=== PATIENT | female | born 2000 | race Caucasian/White ===

== ENCOUNTER 2018-06-30 00:29 | Outpatient (CLI) | payer MEDICAID, OTHER, SELFPAY ==
--- NOTE | 2018-06-30 09:49 | DI.RAD_ITS ---
SYMPTOM/DIAGNOSIS: LOW BACK PAIN, DISABILITY DETERMINATION LUMBAR SPINE: AP and lateral views. No priors. There are five lumbar type vertebral bodies. There appear to be rudimentary ribs at L 1 which is a normal variant. The vertebral bodies, posterior elements and disc spaces are all well maintained. The bones are intact and normally mineralized. IMPRESSION: Negative examination. 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
== END 2018-06-30 00:49 ==
PROVIDERS: PCP Nurse Practitioner Family; Visit Provider Pediatrics Pediatric Rheumatology
DX: M54.5 Low back pain (principal); Z02.71 Encounter for disability determination
CPT/HCPCS: 72100

== ENCOUNTER 2019-04-08 18:20 | Emergency (ER) | payer MEDICAID, SELFPAY ==
[2019-04-08 18:23] VITALS: BP 158/84; PULSE 84; RESP 16; TEMP 36.7; O2SAT 97
--- NOTE | 2019-04-08 18:35 | ED.GENADUL_ITS ---
Discharge Plan Disposition Patient Disposition: HOME Condition: Stable Discharge Details Chief Complaint: EarProblem Clinical Impression: Right ear impacted cerumen Primary Care Provider: Evens Wong ED Provider: Lauro Og Home Meds and New Rx's Prescriptions: No Action Xulane 150-35 mcg/24 hr patch weekly 1 patch Transdermal weekly Qty: 9 RF: 5 sertraline 50 mg tablet 50 mg PO DAILY RF: 0 naproxen 500 mg tablet 500 mg PO BID RF: 0 hydroxyzine HCl 25 mg tablet 25 mg PO .COMPLEX PRN (Reason: itching) Qty: 60 RF: 3 magnesium oxide 420 mg tablet 420 mg PO DAILY Qty: 90 RF: 3 ibuprofen 600 MG tablet 600 mg PO Q6H PRN Qty: 60 RF: 4 Discharge Instructions Instructions: Cerumen Impaction (ED) Medical Decision Making 19 yo female comes in with several days of right era pain/fullness. Denies trauma, drainage, fevers, swimming. Has normal external mastoid exams bilaterally, left tm and ext aud canal normal, right ear is impacted with cerumen. Will have nursing irrigate and reassess nursing irrigated and returned significant amount of ear wax. External aud canal and tm appera normal. Will d/c home, return precautions given Differential Diagnosis impaction, aom HPI General Mode of arrival: ambulatory . Date/Time Provider Initiated Documentation: 04/08/19 18:23 . Limitations to Documentation: no limitations . Information obtained by: patient . History of Present Illness 19 year old F presents to the emergency department with the chief complaint of right ear pain, described as moderate, and it has been constant. No relieving factors improve symptom(s), No exacerbating factors reported . Patient notes no other symptoms.. Patient did receive the following treatments prior to arrival, none Related Data Home Medications Medication Instructions Recorded Confirmed ibuprofen 600 mg PO Q6H PRN #60 tab-cap 12/07/17 02/16/19 hydroxyzine HCl 25 mg tablet 25 mg PO .COMPLEX PRN #60 tab 07/07/18 02/16/19 magnesium oxide 420 mg tablet 420 mg PO DAILY #90 tab 07/07/18 02/16/19 naproxen 500 mg tablet 500 mg PO BID 07/07/18 02/16/19 sertraline 50 mg tablet 50 mg PO DAILY 09/20/18 05/02/19 norelgestromin 150 mcg-e.estradiol 1 patch TRANSDERMAL weekly #9 each 02/16/19 02/16/19 35 mcg/24 hr weekly transderm patch Previous Rx's Medication Instructions Recorded ibuprofen 600 mg PO Q6H PRN #60 tab-cap 12/07/17 hydroxyzine HCl 25 mg tablet 25 mg PO .COMPLEX PRN #60 tab 07/07/18 magnesium oxide 420 mg tablet 420 mg PO DAILY #90 tab 07/07/18 norelgestromin 150 mcg-e.estradiol 1 patch TRANSDERMAL weekly #9 each 02/16/19 35 mcg/24 hr weekly transderm patch Allergies Allergy/AdvReac Type Severity Reaction Status Date / Time No Known Allergies Allergy Unverified 02/16/19 11:36 General Stated Complaint: EarProblem SAGE: 4 Review of Systems Review of Systems All systems reviewed & are unremarkable except as noted in HPI and below Constitutional Denies chills, Denies fever(s) and Denies weakness ENT Denies change in voice Cardiovascular Denies chest pain and Denies dyspnea Respiratory Denies cough and Denies dyspnea Gastrointestinal Denies abdominal pain, Denies nausea and Denies vomiting Neurologic Denies weakness [facility] Medical History BMI 50.0-59.9, adult (Chronic) Migraine with aura Other social stressor Second hand smoke exposure (Acute 02/09/18) Marijuana use, continuous (Acute 08/11/16) Lumbar pain (Acute 02/09/18) Depression with anxiety (Acute 08/11/16) Contraceptive management (Acute 02/25/15) BMI 34.0-34.9,adult Depression with anxiety Social History Smoking/Tobacco Use Status: Former Tobacco Use Second Hand Exposure: Yes Alcohol Intake: never Drug use: Never Substance use type: marijuana Adopted: No Foster care: Yes (briefly 16-17) Household members: significant other, children and other Details: Deangelo LYNCH, ELIESER's mom and his 2 daughters 50% of time Number of Children: 1 Communication Needs: None Education Level: other Details: GED current occupation: Employed-stopped work at [employer] secondary to back pain Pets and animals: Yes (2 CATS, 2 DOGS, 2 FERRETS, 2 LIZARDS) Pets and animals: cat(s), dog(s), ferret(s) and other What is your relationship status?: living with partner Panel score (0-1 are the most socially isolated patients): 1 Do you feel safe at home: Yes Do you feel safe in your relationship?: Yes Additional Social history: CJ on disability for bipolar. His 2 daughters; 8yo and 3yo live at the house 50% of the time. Patient's mother from an acute [place] 2017. Female Reproductive History Menstrual control method: patch History History 2 Para Hx # Term Pregnancies 1 Multiple births Hx # Pregnancies Ectopic pregnancies AB induced Hx Number of Living Children AB spontaneous Exam Const General: no acute distress Orientation: alert HENMT Head: normal to inspection Ears: external ears normal General nose exam: external nose normal Mouth: moist mucous membranes Eyes General: appearance normal, both eyes and all related structures Neck Neck: normal visual inspection Resp Effort & Inspection: normal respiratory effort and able to speak in complete sentences Cardio Rate: regular rate Skin General skin exam: no rashes or lesions noted Neuro General: alert and oriented x3 Extrem General: normal to inspection Psych Mental Status: mental status grossly normal Course Vital Signs Temperature 36.7 C 04/08/19 18:23 Pulse 84 04/08/19 18:23 Respiratory Rate 16 04/08/19 18:23 Blood Pressure 158/84 H 04/08/19 18:23 Pulse Oximetry 97 04/08/19 18:23 Temperature 36.7 C 04/08/19 18:23 Temperature Source Temporal Artery Scan 04/08/19 18:23 Pulse 84 04/08/19 18:23 Respiratory Rate 16 04/08/19 18:23 Respiratory Effort 04/08/19 18:23 Blood Pressure 158/84 H 04/08/19 18:23 Blood Pressure Position Sitting 04/08/19 18:23 Pulse Oximetry 97 04/08/19 18:23 Oxygen Delivery Method Room Air 04/08/19 18:23 Oxygen Flow Rate 0 04/08/19 18:23 Pain Level 4 04/08/19 18:26
== END 2019-04-08 18:51 | disposition home or self-care (01) ==
PROVIDERS: Emergency Provider Emergency Medicine; PCP Nurse Practitioner Family
DX: H92.01 Otalgia, right ear (principal); H61.21 Impacted cerumen, right ear
CPT/HCPCS: 69209; 99282

== ENCOUNTER 2019-05-03 22:43 | Emergency (ER) | payer MEDICAID, SELFPAY ==
[2019-05-03 22:46] VITALS: BP 145/96; PULSE 120; RESP 24; TEMP 35.7; O2SAT 96
--- NOTE | 2019-05-03 22:49 | ED.GENADUL_ITS ---
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 You chose to leave prior to an ultrasound being obtained follow up with your obgyn provider as soon as possible if you change your mind or have worsening bleeding or severe pain return to the emergency department Medical Decision Making 19 yo female who denies prior abnormal periods comes in with complaint of heavy bleeding with clots and cramping of pelvis area starting tonight. Denies fevers, chills, n/v or trauma. She states this is the time she would normally get her period but has never had one this heavy before. She doesn't believe she is . Will check cbc, coags and hcg and perform speculum exam. pt had several large clots in the vagina and bleeding from the cervix. Urine obtained by catheterization by nursing and is positive. She states her last menstrual period was a month ago. She remains hd stable with no abdominal tenderness, hr now in the 80's. No evidence of hemoperitoneum on bedside u/s. I do not visualize an iup on transabdominal u/s. Will see if a tech is available to come in to eval for ectopic no tech available until 7am. Pt remains hd stable and bleeding as decreased. Will keep pt in ED until AM when tvus can be done. Labs show no significant anemia pt is not willing to stay for her ultrasound and wants to leave. I had a long discussion with her about the risks of missing an ectopic including and possible senior living disability requirng full assistance for all activities. She has capacity to make her own decisions and understands and verbalizes these risks of leaving. She is leaving against medical advise. I strongly recommended that she return if she changes her mind or worsening and that she should see her obgyn provider GUS. She understands these instructions Differential Diagnosis dysfunctional uterine bleeding, ectopic Lab Data Lab results reviewed: Yes I reviewed the patient's lab results. HPI General Mode of arrival: ambulatory . Date/Time Provider Initiated Documentation: 05/03/19 22:44 . Limitations to Documentation: no limitations . Information obtained by: patient . History of Present Illness 19 year old F presents to the emergency department with the chief complaint of vaginal bleeding, described as moderate, Patient started experiencing this hour(s) (3) and it has been constant. No relieving factors improve symptom(s), No exacerbating factors reported . Patient did receive the following treatments prior to arrival, none Related Data Home Medications Medication Instructions Recorded Confirmed ibuprofen 600 mg PO Q6H PRN #60 tab-cap 12/07/17 05/03/19 hydroxyzine HCl 25 mg tablet 25 mg PO .COMPLEX PRN #60 tab 07/07/18 05/03/19 magnesium oxide 420 mg tablet 420 mg PO DAILY #90 tab 07/07/18 05/03/19 naproxen 500 mg tablet 500 mg PO BID 07/07/18 05/03/19 sertraline 50 mg tablet 50 mg PO DAILY 07/07/18 05/03/19 norelgestromin 150 mcg-e.estradiol 1 patch TRANSDERMAL weekly #9 each 02/16/19 05/03/19 35 mcg/24 hr weekly transderm patch Previous Rx's Medication Instructions Recorded ibuprofen 600 mg PO Q6H PRN #60 tab-cap 12/07/17 hydroxyzine HCl 25 mg tablet 25 mg PO .COMPLEX PRN #60 tab 07/07/18 magnesium oxide 420 mg tablet 420 mg PO DAILY #90 tab 07/07/18 norelgestromin 150 mcg-e.estradiol 1 patch TRANSDERMAL weekly #9 each 02/16/19 35 mcg/24 hr weekly transderm patch Allergies Allergy/AdvReac Type Severity Reaction Status Date / Time No Known Allergies Allergy Unverified 05/03/19 22:50 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: 3 Review of Systems Review of Systems All systems reviewed & are unremarkable except as noted in HPI and below Constitutional Denies chills and Denies fever(s) Cardiovascular Denies chest pain and Denies dyspnea Respiratory Denies cough and Denies dyspnea Gastrointestinal Denies abdominal pain, Denies nausea and Denies vomiting Integumentary/Breasts Denies rash [facility] Social History (Updated 03/14/19 @ 19:11 by Kayley Yañez MD) Smoking/Tobacco Use Status: Former Tobacco Use Second Hand Exposure: Yes Alcohol Intake: never Drug use: Daily Substance use type: marijuana Adopted: No Foster care: Yes (briefly 16-17) Household members: significant other, children and other Details: ELIESER - MARYSE, Deangelo - Mary, ELIESER's mom and his 2 daughters 50% of time Number of Children: 1 Communication Needs: None Education Level: other Details: GED current occupation: Employed-stopped work at [employer] secondary to back pain Pets and animals: Yes (2 CATS, 2 DOGS, 2 FERRETS, 2 LIZARDS) Pets and animals: cat(s), dog(s), ferret(s) and other What is your relationship status?: living with partner Panel score (0-1 are the most socially isolated patients): 1 Do you feel safe at home: Yes Do you feel safe in your relationship?: Yes Additional Social history: ELIESER on disability for bipolar. His 2 daughters; 8yo and 3yo live at the house 50% of the time. Patient's mother from an acute [place] 2018. Female Reproductive History Menstrual control method: patch History History 2 Para Hx # Term Pregnancies 1 Multiple births Hx # Pregnancies Ectopic pregnancies AB induced Hx Number of Living Children AB spontaneous Exam Const General: no acute distress Orientation: alert HENMT Head: normal to inspection Ears: external ears normal General nose exam: external nose normal Mouth: moist mucous membranes Eyes General: appearance normal, both eyes and all related structures Neck Neck: normal visual inspection Resp Effort & Inspection: normal respiratory effort and able to speak in complete sentences Cardio Rate: regular rate GI Palpation: soft Skin General skin exam: no rashes or lesions noted Neuro General: alert and oriented x3 Extrem General: normal to inspection Psych Mental Status: mental status grossly normal Course Vital Signs Temperature 35.7 C L 05/03/19 22:46 Pulse 120 H 05/03/19 22:46 Respiratory Rate 24 05/03/19 22:46 Blood Pressure 145/96 H 05/03/19 22:46 Pulse Oximetry 96 05/03/19 22:46 Temperature 35.7 C L 05/03/19 22:46 Temperature Source Skin 05/03/19 22:46 Pulse 120 H 05/03/19 22:46 Respiratory Rate 24 05/03/19 22:46 Blood Pressure 145/96 H 05/03/19 22:46 Pulse Oximetry 96 05/03/19 22:46 Pain Level 8 05/03/19 22:46
[2019-05-03 23:12] LABS: Abs Immature Grans 0.05 k/cumm (0.0-0.09); Absolute Basophil Count 0.03 k/cumm (0.0-0.2); Absolute Monocyte Count 0.77 k/cumm (0.11-0.7); Absolute Neutrophil Count 12.33 k/cumm (1.2-6.7); Basophils % 0.2; Eosinophils % 1.2; HCT 41.3 % (36.0-46.0); HGB 13.7 g/dL (12.0-15.5); Immature Grans % 0.3; Lymphocytes % 16.8; Mean Corp. HGB Concentration 33.2 g/dL (32.0-36.0); Mean Corpuscular Hemoglobin 27.2 pg (27.0-33.0); Mean Corpuscular Volume 82.1 fL (80-95); Mean Platelet Volume 10.1 fL (8.0-11.0); Monocytes % 4.8; Neutrophils % 76.7; Platelet Count 357 x1000/uL (130-400); RBC 5.03 m/cumm (4.00-5.20); RBC Distribution Width 13.7 % (11.7-14.6); White Blood Cell Count 16.08 k/cumm (4.4-10.8)
[2019-05-03 23:13] LABS: Absolute Eosinophil Count 0.19 k/cumm (0.0-0.7)
[2019-05-03 23:27] LABS: ALT 18 U/L (12-78); AST 15 U/L (15-37); Albumin 3.4 g/dL (3.4-5.0); Alkaline Phosphatase 106 U/L (46-116); Anion Gap 13.9 mmol/L (3-11); BUN 10 mg/dL (7-18); Bilirubin, Total 0.2 mg/dL (0.2-1.0); CO2 22.1 mmol/L (21.0-32.0); CREATININE 0.88 mg/dL (0.55-1.02); Calcium 9.2 mg/dL (8.5-10.1); Chloride 104 mmol/L (98-107); Glucose 116 mg/dL (70-100); Potassium 3.8 mmol/L (3.5-5.1); Sodium 140 mmol/L (136-145); Total Protein 7.4 g/dL (6.4-8.2)
[2019-05-03 23:43] LABS: PTT Activated 22.1 sec (21.0-31.4); Prothrombin Time 9.8 sec (9.3-11.0)
[2019-05-03 23:45] LABS: HCG Qual (Serum) Positive
[2019-05-03] MEDS: Ibuprofen 600 MG TAB PO (23:52)
[2019-05-04] VITALS (45 sets, daily range): BP systolic 97–137; BP diastolic 52–90; PULSE 79–117; RESP 16; TEMP 35.7; O2SAT 92–100
[2019-05-04 00:20] LABS: HCG Quant, Pregnancy 1593 mIU/mL (1-3)
[2019-05-04] MEDS: Acetaminophen 500 MG TAB 1000 MG PO (01:44)
--- NOTE | 2019-05-04 01:53 | DI.US_ITS ---
SYMPTOM/DIAGNOSIS: VAGINAL BLEEDING, OB ULTRASOUND: A transabdominal and transvaginal examination was carried out. The study is limited due to the patient's body habitus. The uterus measures 12.4 cm in length, 5.5 cm in height and 6.2 cm in width with an endometrial stripe thickness of 6.3 mm The right ovary measures 3.5 x 1.6 x 3 cm. The left ovary 3.1 x 1.4 x 3 cm. No intrauterine gestation is identified. Note is made of color flow in both ovaries with nothing to suggest torsion. No acute abnormality is identified. There is no evidence of an intrauterine gestation. Many abnormalities cannot be diagnosed. A normal exam does not exclude a congenital anomaly. HISTORY: Vaginal bleeding with Date of exam: 05/04/2019 LMP: 04/10/19 EDC by LMP: Previous study: wks Range: to EDC by prior us: Findings: Prior surgery/: BIOMETRY: PELVIC MEASUREMENTS: CRL: mm wks Uterus: 12.4 x 5.5 x 6.2 cm Yolk sac: mm wks Gest sac: mm wks Rt Ovary: 3.5 x 1.6 x 3 cm BPD: mm wks HC: mm wks Lt Ovary: 3.1 x 1.4 x 3 cm AC: mm wks FL: mm wks Comments: color flow seen in both ovaries. Composite Age (US): wks EDC by US: Heart Rate: BPM Amniotic Fluid: Oligo Normal Polyhydramnios Movement noted: No Comments:
[2019-05-04] MEDS: fentaNYL 100 MCG/2 ML VIAL 75 MCG IVP ×2 (02:31→03:05)
[2019-05-04 02:44] LABS: HCT 37.9 % (36.0-46.0); HGB 12.6 g/dL (12.0-15.5); Mean Corp. HGB Concentration 33.2 g/dL (32.0-36.0); Mean Corpuscular Hemoglobin 27.2 pg (27.0-33.0); Mean Corpuscular Volume 81.9 fL (80-95); Mean Platelet Volume 10.2 fL (8.0-11.0); Platelet Count 342 x1000/uL (130-400); RBC 4.63 m/cumm (4.00-5.20); RBC Distribution Width 13.5 % (11.7-14.6); White Blood Cell Count 16.01 k/cumm (4.4-10.8)
--- NOTE | 2019-05-04 08:58 | CMPROGNOTE_ITS ---
Care Management Progress Note CM consult requested by Dr. Nobles due to Pat requiring a ride home and having experienced a miscarriage. Pat was pleasant in interaction and reported previous miscarries including when she was 15, and 17 when she became with triplets and required reduction due to two of the babies sharing a placenta and risk of losing all three babies. She reports a healthy and states she now has a two year old daughter; Iesha. Pat advocated for driving herself home. She stated her significant other does not have a license and does not drive and her car is at [facility], creating a hardship for her to retrieve the car later. CM spoke with Dr. Nobles who assessed Pat and cleared her to drive herself home. FANNY provided Pat resources to follow up with [facility] in [facility], or this sba underwriter if she chooses. She will call and make an appointment for one week to check that her hormone is decreasing, per .
== END 2019-05-04 08:42 | disposition home or self-care (01) ==
PROVIDERS: Emergency Medicine; Emergency Provider Physician Assistant; PCP Nurse Practitioner Family
DX: O03.9 Complete or unspecified spontaneous abortion without complication (principal); Z3A.00 Weeks of gestation of pregnancy not specified
CPT/HCPCS: 36415; 80053; 81025; 85027; 86850; 86900; 86901; 96374; 99284; 76801; 84702; 84703; 85025; 85610; 85730; J3010; J3490

== ENCOUNTER 2019-05-16 15:04 | Outpatient (CLI) | payer MEDICAID, SELFPAY ==
[2019-05-16 16:47] LABS: HCG Quant, Pregnancy 1 mIU/mL (1-3)
== END 2019-05-16 15:24 ==
PROVIDERS: PCP Nurse Practitioner Family; Visit Provider Nurse Practitioner Family
DX: N92.6 Irregular menstruation, unspecified (principal); O20.9 Hemorrhage in early pregnancy, unspecified
CPT/HCPCS: 36415; 84702

== ENCOUNTER 2019-11-22 14:54 | Emergency (ER) | payer MEDICAID, SELFPAY ==
[2019-11-22] VITALS (32 sets, daily range): BP systolic 117–147; BP diastolic 56–76; PULSE 86–117; RESP 13–28; TEMP 37.3–37.4; O2SAT 97–100
--- NOTE | 2019-11-22 15:35 | ED.GENADUL_ITS ---
Discharge Plan Disposition Patient Disposition: HOME Condition: Fair Discharge Details Chief Complaint: Chest Pain Clinical Impression: Influenza B Primary Care Provider: Evens Wong ED Provider: Pamela Rodas Home Meds and New Rx's Prescriptions: New Xofluza 40 mg tablet 80 mg PO ONCE Qty: 2 RF: 0 Continued Xulane 150-35 mcg/24 hr patch weekly 1 patch Transdermal weekly Qty: 9 RF: 5 naproxen 500 mg tablet 500 mg PO BID PRNRF: 0 hydroxyzine HCl 25 mg tablet 25 mg PO .COMPLEX PRN (Reason: itching) Qty: 60 RF: 3 Discharge Instructions Instructions: Influenza (ED) Additional Instructions: Encourage water intake. Tylenol and ibuprofen as needed for discomfort. Please take the Xofluza as prescribed. This is very contagious, please wash your hands frequently. If develop difficulty breathing, shortness of breath, inability stay hydrated or the new/worsening symptom please seek care urgently once again. Otherwise, please follow-up with primary care in 1 week. Stand Alone Forms: Work Release Referrals: Evens Wong, [employer]EL[employer] [Primary Care Provider] - Discharge Data Discharge Date/Time-TO BE ENTERED AT DEPARTURE: 11/22/19 19:20 Medical Decision Making <CATHY Paredes - Last Filed: 11/24/19 01:06> Is a 19-year-old patient presenting for complaints of chest pain which began at 1130 today while she was working. She has had constant chest pain for the last 4 -5 hours. Patient reports feeling mildly anxious. Patient reports associated anxiety, clamminess and nausea. Patient does report mild cough. Patient does report 3+ for flu exposures in her home currently. Patient complaining of chest pain in the midsternal area toward the right. Denies waxing and waning character. Reports pain is 6 out of 10. Patient denies associated back pain. Patient is reporting nausea without vomiting. No associated diarrhea or abdominal pain. Patient's vital signs reviewed and noted to be mildly tachycardic. Patient is on control, is a non-smoker, has no recent travel or cancer history. Family history maternal cardiac disease. Patient offered medications at this time for symptomatic relief and declines. Patient offered nausea medication at this time and declines. IV fluids provided, labs obtained. Patient's initial EKG reveals a heart rate of 119 with sinus tachycardia. No ST segment changes noted, unremarkable EKG reviewed with Dr. Hurst. <CATHY Hernandez - Last Filed: 11/25/19 00:21> Care transitioned to myself from Tigist Zaldivar PA-C with labs and imaging pending. Please see her initial note. Labs reviewed, reassuring with no signficant abnormality. Patient is flu B positive. Will prescribe Xofluza. Repeat troponin pending. Repeat troponin remains less than 0.05. Chest x-ray reviewed by radiologist: FINDINGS: Lungs: Unremarkable. No consolidation. Pleural space: Unremarkable. No pleural effusion. No pneumothorax. Heart/Mediastinum: Unremarkable. No cardiomegaly. Bones/joints: Unremarkable. IMPRESSION: No acute findings. Discussed these findings with the patient. Advised her sudden onset of symptoms is likely correlated with her diagnosis of influenza 3. We will begin the patient on Xofluza. Encourage close follow-up with primary care. We did discuss that this is very contagious and encourage frequent hand hygiene. She is given strict return precautions. We discussed [id number] and home regimens to help with symptomatic management. All of her questions and concerns were addressed and she is agreement with plan. Was contacted by the pharmacy, Xofluza is not covered. Changed to Tamiflu. HPI <CATHY Paredes - Last Filed: 11/24/19 01:06> General Date/Time Provider Initiated Documentation: 11/22/19 15:29 . HPI Narrative: Is a 19-year-old patient presenting to the emergency room for complaints of chest pain which she reports began at approximately 1130. She reports chest pain is approximately 6 out of 10 at this time has been constant since that time. Patient reports chest pain began while she was working. Patient denies obvious injury or trauma. Patient reports pain as substernal with mild radiation into the right side. No radiation to the neck, back or extremity on the left. Patient does report mild shortness of breath associated. Patient does report mild nausea associated without vomiting. Patient does complain of mild nasal congestion as well as a dry cough. Patient reports mild achiness. Patient reports that 3 of the family members in her home are positive with the flu. Patient denies any abdominal pain or diarrhea associated. Patient denies measured fever or chills. No other concerns or complaints at this time. Patient denies any recent travel. Patient non-smoker. Does report use of control. Family history relevant for cardiac disease in mother as well as grandmother, mother of cardiac issue at the age of 60. Related Data Home Medications Medication Instructions Recorded Confirmed hydroxyzine HCl 25 mg tablet 25 mg PO .COMPLEX PRN #60 tab 07/07/18 11/22/19 naproxen 500 mg tablet 500 mg PO BID PRN 07/07/18 11/22/19 norelgestromin 150 mcg-e.estradiol 1 patch TRANSDERMAL weekly #9 each 02/16/19 11/22/19 35 mcg/24 hr weekly transderm patch baloxavir marboxil [Xofluza] 80 mg PO ONCE #2 tab 11/22/19 Previous Rx's Medication Instructions Recorded hydroxyzine HCl 25 mg tablet 25 mg PO .COMPLEX PRN #60 tab 07/07/18 norelgestromin 150 mcg-e.estradiol 1 patch TRANSDERMAL weekly #9 each 02/16/19 35 mcg/24 hr weekly transderm patch baloxavir marboxil [Xofluza] 80 mg PO ONCE #2 tab 11/22/19 Allergies Allergy/AdvReac Type Severity Reaction Status Date / Time No Known Allergies Allergy Verified 11/22/19 15:30 General Stated Complaint: Chest Pain SAGE: 3 Review of Systems <CATHY Paredes - Last Filed: 11/24/19 01:06> All systems reviewed & are unremarkable except as noted in HPI and below Constitutional Constitutional: Denies chills, Denies fatigue, Denies fever(s), Denies headache(s) and Denies malaise ENT Ears, Nose, Mouth, and Throat: Denies otalgia, Denies headache(s), Reports nasal congestion, Reports nasal discharge, Denies sinus pain, Denies sinus pressure and Denies sore throat Cardiovascular Cardiovascular: Reports chest pain, Reports chest pain at rest, Denies leg edema, Denies palpitations, Denies dyspnea on exertion and Denies orthopnea Respiratory Respiratory: Reports cough and Denies dyspnea on exertion Gastrointestinal Gastrointestinal: Denies abdominal pain, Denies diarrhea, Reports nausea and Denies vomiting Genitourinary Genitourinary: Denies dysuria Neurologic Neurologic: Denies headache(s) Endocrine Endocrine: Denies fatigue and Denies palpitations PFS <CATHY Paredes - Last Filed: 11/24/19 01:06> Medical History BMI 34.0-34.9,adult BMI 50.0-59.9, adult (Resolved) 07/07/2018 BMI= 48. 02/2019 BMI = 52. Contraceptive management (Acute 02/25/15) 03/2017 Xulane patch. Satisfactory compliance. Depression with anxiety Depression with anxiety (Acute 08/11/16) Lumbar pain (Acute 02/09/18) Onset during 2017 . No relief with NSAIDs or PT. Marijuana use, continuous (Acute 08/11/16) Migraine with aura Other social stressor Finances are tight. 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 Second hand smoke exposure (Acute 02/09/18) pt denies that she smokes tobacco. household memebers do. Social History (Updated 03/14/19 @ 19:11 by Kayley Yañez MD) Smoking/Tobacco Use Status: Former Tobacco Use Second Hand Exposure: Yes Alcohol Intake: never Drug use: Daily Substance use type: marijuana Adopted: No Foster care: Yes (briefly 16-17) Household members: significant other, children and other Details: Deangelo LYNCH, CJ's mom and his 2 daughters 50% of time Number of Children: 1 Communication Needs: None Education Level: other Details: GED current occupation: Employed-stopped work at [employer] secondary to back pain Pets and animals: Yes (2 CATS, 2 DOGS, 2 FERRETS, 2 LIZARDS) Pets and animals: cat(s), dog(s), ferret(s) and other What is your relationship status?: living with partner Panel score (0-1 are the most socially isolated patients): 1 Do you feel safe at home: Yes Do you feel safe in your relationship?: Yes Additional Social history: CJ on disability for bipolar. His 2 daughters; 8yo and 3yo live at the house 50% of the time. Patient's mother from an acute [place] 2017. Female Reproductive History Menstrual control method: patch History History 2 Para Hx # Term Pregnancies 1 Multiple births Hx # Pregnancies Ectopic pregnancies AB induced Hx Number of Living Children AB spontaneous Exam <CATHY Paredes - Last Filed: 11/24/19 01:06> Narrative Exam Narrative: CONST: Obese. Clammy. Well hydrated. Alert and oriented. HENMT: Head nomocephalic, normal to inspection. Atraumatic. Hearing grossly normal. External ear canal no erythema or swelling. TM normal bilaterally. Nose normal to inspection. No rhinnorhea. Normal facial exam. Oral mucosa normal. Tounge normal. Dentition normal. Normal posterior oropharynx. Uvula midline. EYES: General normal appearance. Alignment normal. Eyelids normal. Conjunctiva normal. Sclera normal. PERRL. NECK: Normal visual inspection. FROM. Trachea midline. No Midline tenderness. No cervical lymphadenopathy CHEST: Normal insepection of the chest. No pain with palpation RESP: Normal respiratory effort. Speaking full sentences. No cough. No wheezing. No retractions. Clear to auscaltation. Breath sound equal and present bilaterally. CARDIO: No JVD. Normal PMI. Tachycardic. Regular Rhythm. Normal peripheral pulses. GI: Normal inspection of abdomen. No distension. Soft. Nontender. Bowel sounds present in all 4 quadrants. No rebound. No gaurding. MUSCULOSKELETAL: Normal Gait. FROM of all extremities. Distal neurovascularly intact. Sensation intact distally. No edema, no calf pain with palpation SKIN: Normal. Dry. No rashes. Clammy PSYCH: Anxious Course <CATHY Paredes - Last Filed: 11/24/19 01:06> Vital Signs Vital signs: Vital Signs Temperature 37.3 C 11/22/19 15:02 Pulse 117 H 11/22/19 15:02 Respiratory Rate 18 11/22/19 15:02 Blood Pressure 147/74 H 11/22/19 15:02 Pulse Oximetry 97 11/22/19 15:02 Temperature 37.3 C 11/22/19 15:02 Temperature Source Skin 11/22/19 15:02 Pulse 117 H 11/22/19 15:02 Respiratory Rate 18 11/22/19 15:02 Respiratory Effort 11/22/19 15:07 Respiratory Depth Normal 11/22/19 15:07 Respiratory Pattern Tachypnea 11/22/19 15:07 Blood Pressure 147/74 H 11/22/19 15:02 Blood Pressure Position Sitting 11/22/19 15:02 Pulse Oximetry 97 11/22/19 15:02 Oxygen Delivery Method Room Air 11/22/19 15:02 Oxygen Flow Rate 0 11/22/19 15:02 Pain Level 6 11/22/19 15:02 Sign Out <CATHY Paredes - Last Filed: 11/24/19 01:06> Sign Out Data: Sign Out Comment: Signed out pending labs, chest x-ray, flu testing and disposition Last updated by Angela Zaldivar PA at 11/22/19 16:04
[2019-11-22] MEDS: Normal Saline 1,000 ML 1000 ML IV (15:39)
[2019-11-22 15:48] LABS: Abs Immature Grans 0.01 k/cumm (0.0-0.09); Absolute Basophil Count 0.03 k/cumm (0.0-0.2); Absolute Eosinophil Count 0.18 k/cumm (0.0-0.7); Absolute Lymphocyte Count 1.15 k/cumm (1.2-3.4); Absolute Neutrophil Count 4.54 k/cumm (1.2-6.7); Basophils % 0.5; Eosinophils % 2.7; HCT 37.7 % (36.0-46.0); HGB 11.7 g/dL (12.0-15.5); Immature Grans % 0.2 %; Lymphocytes % 17.4; Mean Corpuscular Hemoglobin 22.5 pg (27.0-33.0); Mean Corpuscular Volume 72.4 fL (80-95); Mean Platelet Volume 9.7 fL (8.0-11.0); Monocytes % 10.6; Neutrophils % 68.6; Platelet Count 421 x1000/uL (130-400); RBC 5.21 m/cumm (4.00-5.20); RBC Distribution Width 17.9 % (11.7-14.6); White Blood Cell Count 6.61 k/cumm (4.4-10.8)
[2019-11-22 16:01] LABS: Lipase 64 U/L (73-393)
[2019-11-22 16:02] LABS: HCG Qual (Serum) Negative
[2019-11-22 16:14] LABS: ALT 32 U/L (14-59); AST 25 U/L (15-37); Albumin 3.4 g/dL (3.4-5.0); Alkaline Phosphatase 120 U/L (46-116); Anion Gap 8.3 mmol/L (3-11); BUN 6 mg/dL (7-18); Bilirubin, Total 0.3 mg/dL (0.2-1.0); CO2 25.7 mmol/L (21.0-32.0); CREATININE 0.88 mg/dL (0.55-1.02); Calcium 8.6 mg/dL (8.5-10.1); Chloride 103 mmol/L (98-107); Glucose 80 mg/dL (74-106); Potassium 3.8 mmol/L (3.5-5.1); Sodium 137 mmol/L (136-145); Total Protein 7.5 g/dL (6.4-8.2)
[2019-11-22 16:19] LABS: D-Dimer 378 ng/mlFEU (<500)
[2019-11-22 16:26] LABS: Troponin I < 0.05 ng/Ml (<0.06)
[2019-11-22 16:42] LABS: Bilirubin Negative (Negative); Blood Negative (Negative); Clarity Sl Cloudy (Clear); Glucose Negative (Negative); Ketones Negative (Negative); Leukocyte Esterase Negative (Negative); Nitrite Negative (Negative); Urobilinogen 0.2 EU/dL (Up TO 0.2)
[2019-11-22 16:51] LABS: Anisocytosis 1+; Hypochromasia 1+; Microcytosis 2+
--- NOTE | 2019-11-22 17:42 | DI.RAD_ITS ---
EXAM: XR CHEST 2V PA LATERAL XR CHEST 2V PA LATERAL CLINICAL HISTORY: chest pain, mild cough chest pain, mild cough TECHNIQUE: 2D digital imaging was performed. COMPARISON: CHEST 2 VIEWS PA,LAT from 11/23/2017 FINDINGS: The heart is not enlarged. The lungs are clear and well expanded. No pleural effusion seen. Mediastin al contours appear intact. IMPRESSION: Normal chest
--- NOTE | 2019-11-22 18:12 | DI.VRAD_ITS ---
PROCEDURE INFORMATION: Exam: XR Chest, 2 Views Exam date and time: 11/22/2019 5:43 PM Age: 19 years old Clinical indication: Other: Chest pain, mild cough TECHNIQUE: Imaging protocol: XR of the chest Views: 2 views. COMPARISON: CR CHEST 2 VIEWS PA,LAT 11/23/2017 1:25 PM FINDINGS: Lungs: Unremarkable. No consolidation. Pleural space: Unremarkable. No pleural effusion. No pneumothorax. Heart/Mediastinum: Unremarkable. No cardiomegaly. Bones/joints: Unremarkable. IMPRESSION: No acute findings. Dictated and Authenticated by: Phoenix Wylie MD. Ordering:JENNIFER Miller MD
[2019-11-22 18:54] LABS: Troponin I < 0.05 ng/Ml (<0.06)
== END 2019-11-22 19:20 | disposition home or self-care (01) ==
PROVIDERS: Physician Assistant; Emergency Provider Physician Assistant; PCP Nurse Practitioner Family
DX: J10.1 Influenza due to other identified influenza virus with other respiratory manifestations (principal); R05 Cough
CPT/HCPCS: 36415; 80053; 83690; 87449; 93005; 96360; 99285; 71046; 81003; 84484; 84703; 85025; 85379; 93010

== ENCOUNTER 2020-11-17 08:10 | Inpatient (IN) | payer MEDICAID, SELFPAY ==
[2020-11-17] VITALS (10 sets, daily range): BP systolic 121–160; BP diastolic 70–95; PULSE 80–126; RESP 14–20; TEMP 36.5–36.9; O2SAT 94–100
--- NOTE | 2020-11-17 08:29 | ED.GENADUL_ITS ---
Discharge Plan Disposition Patient Disposition: [facility] INPATIENT Condition: Stable Discharge Details Clinical Impression: related condition in third trimester Admit Date/Time: 11/17/20 09:35 Admit Provider: Melissa Mckeon Attending Provider: Melissa Mckeon Primary Care Provider: Evens Wong ED Provider: Nuzhat Bazan Discharge Data Discharge Date/Time-TO BE ENTERED AT DEPARTURE: 11/17/20 09:58 Medical Decision Making 20-year-old female presents to the ED with chief complaint of lower back pain. Patient states that it began suddenly yesterday while she was doing her normal things denies any falls or injuries reports lower mid back pain with radiation to her bilateral hips. Denies any radiation into her buttocks or her legs. She states that she woke up this morning stood up and was incontinent of urine. She denies any problems having bowel movements or constipation. She did not take any medications prior to arrival. Upon initial exam she is moving and able to lay down and sit up in the bed without any difficulty. She does have intact sensation to her bilateral lower legs. She denies any saddle anesthesia. Negative straight leg test bilaterally. Intact dorsal flexion and pedal flexion. She reports that lying down makes it worse. 9:00: Patient urine hCG bedside test is positive for . Patient unsure of last menstrual period. Patient denies any abdominal pain no vaginal bleedin g. She does state that she has some clear urine vaginal discharge yesterday. She is on the control patch. She is 4 para 1 Ab2. Bedside ultrasound done heart movement noted. Dr. Nobles at bedside to assist with ultrasound. Will call [employer] on-call. Labs ordered including CBC, CMP, hCG quant and heart tones. X-ray lumbar spine canceled. Meds not given. Spoke with Melissa Mckeon who is operations and maintenance technician for [employer], she does not recommend transfer upstairs at this time for monitoring due to unknown gestational age. She does recommend obtaining a repeat urinalysis and checking for continual fluid leaking. At this time I am concerned for patient gestation being greater than 20 weeks and I do recommend transfer up to center. Patient is complaining of intermittent back pain approximately every 5 to 7 minutes, Dr. Nobles at bedside for assistance with ultrasound, we did measure the skull measurement is 37.1weeks estimated gestation, Will recheck BP , repe at BP is 131/93 HR 99. Fundus palpated approximately [address] Nobles Spoke again with Melissa Mckeon who agrees to accept patient up to L&D. 1006: Patient transported up to Center. HPI General Mode of arrival: ambulatory . Date/Time Provider Initiated Documentation: 11/17/20 08:15 . Limitations to Documentation: no limitations . Information obtained by: patient . HPI Narrative: 20-year-old female presents to the ED with chief complaint of lower back pain. Patient states that it began suddenly yesterday while she was doing her normal things denies any falls or injuries reports lower mid back pain with radiation to her bilateral hips. Denies any radiation into her buttocks or her legs. She states that she woke up this morning stood up and was incontinent of urine. She denies any problems having bowel movements or constipation. She did not take any medications prior to arrival. Upon initial exam she is moving and able to lay down and sit up in the bed without any difficulty. She does have intact sensation to her bilateral lower legs. She denies any saddle anesthesia. Negative straight leg test bilaterally. Intact dorsal flexion and pedal flexion. She reports that lying down makes it worse. Related Data Home Medications Medication Instructions Recorded Confirmed hydroxyzine HCl 25 mg tablet 25 mg PO .COMPLEX PRN #60 tab 07/07/18 11/17/20 naproxen 500 mg tablet 500 mg PO BID PRN 07/07/18 11/17/20 norelgestromin 150 mcg-e.estradiol 1 patch TRANSDERMAL weekly #9 each 02/16/19 11/17/20 35 mcg/24 hr weekly transderm patch Previous Rx's Medication Instructions Recorded hydroxyzine HCl 25 mg tablet 25 mg PO .COMPLEX PRN #60 tab 07/07/18 norelgestromin 150 mcg-e.estradiol 1 patch TRANSDERMAL weekly #9 each 02/16/19 35 mcg/24 hr weekly transderm patch Allergies Allergy/AdvReac Type Severity Reaction Status Date / Time No Known Allergies Allergy Verified 11/22/19 15:30 General Stated Complaint: Nk/Back Pain SAGE: 3 Review of Systems Narrative: Constitutional: Negative for weight loss, alert and oriented, well g roomed, normal body habitus, appears comfortable. HEENT: Denies trauma, headaches, blurry vision, nasal discharge, sore throat, trouble swallowing. Chest: Denies chest pain, palpitations, irregular rhythm, hypertension. Respiratory: Denies Shortness of breath, cough, hemoptysis. GI: Denies abdominal pain, nausea, vomiting, diarrhea, constipation. : Denies dysuria, hematuria, flank pain, rectal bleeding. Reports an episode of incontinent urine. Musculoskeletal: Mid lower lumbar tenderness with radiation to bilateral hips. Neuro: Denies dizziness, blurry vision, weakness, syncope, headache or facial numbness. Hematologic: Denies easy bruising, intolerance to heat or cold, hair loss. PFSH Medical History BMI 34.0-34.9,adult BMI 50.0-59.9, adult 07/07/2018 BMI= 48. 02/2019 BMI = 52. Contraceptive management (02/25/15) 03/2017 Xulane patch. Satisfactory compliance. Depression with anxiety Depression with anxiety (08/11/16) Lumbar pain (02/09/18) Onset during 2017 . No relief with NSAIDs or PT. Marijuana use, continuous (08/11/16) Migraine with aura Other social stressor Finances are tight. 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 Second hand smoke exposure (02/09/18) pt denies that she smokes tobacco. household memebers do. Family History Mother Heart disease [place]. 08/31/18 from [place]. Myocardial infarction Asthma Father Diabetes Alcohol abuse Neoplasm pancreatic cancer Social History Smoking/Tobacco Use Status: Former Tobacco Use Second Hand Exposure: Yes Smoking risk assessment performed?: Yes Alcohol Intake: never Drug use: Daily Substance use type: marijuana Adopted: No Foster care: Yes (briefly 16-17) Household members: significant other, children and other Details: Deangelo LYNCH, ELIESER's mom and his 2 daughters 50% of time Number of Children: 1 Communication Needs: None Education Level: other Details: GED current occupation: Employed-stopped work at [employer] secondary to back pain Pets and animals: Yes (2 CATS, 2 DOGS, 2 FERRETS, 2 LIZARDS) Pets and animals: cat(s), dog(s), ferret(s) and other What is your relationship status?: living with partner Panel score (0-1 are the most socially isolated patients): 1 Do you feel safe at home: Yes Do you feel safe in your relationship?: Yes Additional Social history: CJ on disability for bipolar. His 2 daughters; 8yo and 3yo live at the house 50% of the time. Patient's mother from an acute [place] 2017. Female Reproductive History Menstrual control method: patch History History 2 Para Hx # Term Pregnancies 1 Multiple births Hx # Pregnancies Ectopic pregnancies AB induced Hx Number of Living Children AB spontaneous Exam Narrative Exam Narrative: Constitutional: Alert and oriented x3. Appears stated age. obese body habitus. Head: Normocephalic, no trauma. Eyes: Pupils PERRLA, Red reflex noted, EOM's intact. Eyelids symmetrical without lesions, discharge, or swelling. ENT: Bilateral TM's WNL, External ear normal to inspection, no mastoid TTP, swelling, or erythema, Nasal turbinates WNL, no nasal discharge. Normal dentition, Posterior pharynx WNL, no exudate. Chest: RRR, Normal S1, S2, distal pulses intact. Resp: Lungs clear to auscultation bilaterally, no wheezes, rales, or rhonchi. Musculoskeletal: Normal gait, 5/5 strength to all four extremities. Intact dorsal pedal pulses and plantar flexion, negative straight leg test bilaterally. Sensation intact bilateral lower extremities. Skin: No suspicious rashes or lesions. Capillary refill less than 2 sec. Neurologic: Cranial nerves II-XII intact. Alert and oriented x 3. DTR's intact. Hematologic/Lymphatic: No ecchymosis, no lymphadenopathy. Course Vital Signs Vital signs: Vital Signs Temperature 36.6 C 11/17/20 08:15 Pulse 126 H 11/17/20 08:15 Respiratory Rate 20 11/17/20 08:15 Blood Pressure 160/95 H 11/17/20 08:15 Pulse Oximetry 96 11/17/20 08:15 Temperature 36.6 C 11/17/20 08:15 Temperature Source Skin 11/17/20 08:15 Pulse 126 H 11/17/20 08:15 Respiratory Rate 20 11/17/20 08:15 Respiratory Effort Non-Labored 11/17/20 08:19 Blood Pressure 160/95 H 11/17/20 08:15 Blood Pressure Position Sitting 11/17/20 08:15 Pulse Oximetry 96 11/17/20 08:15 Oxygen Delivery Method Room Air 11/17/20 08:15 Oxygen Flow Rate 0 11/17/20 08:15 Pain Level 7 11/17/20 08:19
[2020-11-17 08:48] LABS: Bilirubin Negative (Negative); Blood Trace-intact (Negative); Clarity Sl Cloudy (Clear); Glucose Negative (Negative); Ketones Negative (Negative); Leukocyte Esterase Negative (Negative); Nitrite Negative (Negative); Specific Gravity >= 1.030 (1.005-1.025); Urobilinogen 0.2 EU/dL (Up TO 0.2)
[2020-11-17 08:59] LABS: WBC 0-2 HPF (0-5)
[2020-11-17 09:00] LABS: Bacteria Few HPF (Negative); C & S Indicated? Yes; Casts Negative LPF (Negative); Crystals Moderate Amorphous HPF (Negative); Epithelial Cells Few HPF (Negative); Mucus Moderate (Negative)
[2020-11-17 09:36] LABS: Abs Immature Grans 0.07 10^3/uL (0.0-0.06); Absolute Basophil Count 0.05 10^3/uL (0.0-0.2); Absolute Eosinophil Count 0.14 10^3/uL (0.0-0.7); Absolute Monocyte Count 0.64 10^3/uL (0.1-0.8); Basophils % 0.4; HCT 37.2 % (36.0-46.0); HGB 11.2 g/dL (11.2-15.7); Immature Grans % 0.5; Lymphocytes % 19.4; MCH 22.4 pg (27.0-33.0); MCHC 30.1 % (32.0-36.0); MCV 74.4 fL (80-95); MPV 10.3 fL (8.0-11.0); Monocytes % 4.7; Nucleated RBC 0 %; RDW-SD 42.8 fL; WBC 13.53 10^3/uL (4.4-10.8)
[2020-11-17 09:38] LABS: Absolute Lymphocyte Count 2.62 10^3/uL (1.2-3.4); Absolute Neutrophil Count 10.01 10^3/uL (1.2-6.7)
--- NOTE | 2020-11-17 09:39 | NUR.NOTE ---
0938: Pain starting again per patient. Pt locates bilateral low pelvis that radiates towards her center lower back. 0940: Pain subsided. 0941: Pain coming back per patient. 0943: Pain stopped. 0944: Pain happening again. 0945: Pain starting again. 0945: Pain is going away. BP 139/91, HR 88 bpm. Pt reports the last time she ate/drank was at around 2300 last night. 0948:Pain is starting again. Quality of pt pain remains the same as noted above. 0949: Pain is going away. 0952: Pain is starting 0953: pain is going away. Pt reports she does not smoke. Pt reports she quit 3 years ago. Pt reports she doesnt drink alcohol no, I dont like alcohol 0955: Pain is starting again 0956: Pain is stopping 0958 Pain is starting again 0959: Pt being transferred to OB on 3rd floor at this time with 2 RN's.
[2020-11-17 09:55] LABS: Platelet Count 334 10^3/uL (130-400)
[2020-11-17 09:56] LABS: Diff Comment Diff Reviewed; Hypochromasia 1+; Microcytosis 2+; Polychromasia Present
[2020-11-17 10:15] LABS: ALT 18 U/L (14-59); AST 16 U/L (15-37); Albumin 2.5 g/dL (3.4-5.0); Alkaline Phosphatase 155 U/L (46-116); Anion Gap 10.7 mmol/L (3-11); BUN 9 mg/dL (7-18); Bilirubin, Total 0.2 mg/dL (0.2-1.0); CO2 22.3 mmol/L (21.0-32.0); CREATININE 0.7 mg/dL (0.55-1.02); Chloride 103 mmol/L (98-107); Glucose 92 mg/dL (74-106); HCG Quant, Pregnancy 14829 mIU/mL (1-3); Sodium 136 mmol/L (136-145); Total Protein 7.4 g/dL (6.4-8.2)
--- NOTE | 2020-11-17 10:15 | DI.US_ITS ---
EXAM: US OB TERESITA WEIGHT CLINICAL HISTORY: Unknown /Back pain TECHNIQUE: Ultrasound performed using standard protocol. COMPARISON: No exams were available for comparison FINDINGS: There is a single intrauterine gestation. The fetus is in breech position. The placenta is fundal, grade 2. The biometric measurements correspond 37 weeks 5 days and an EDC December 08. ca rdiac activity is demonstrated at 163 beats per minute. The amniotic fluid index measures 5.3, borde rline for oligohydramnios. No gross abnormalities are identified. A full survey was not performed. IMPRESSION: Breech fetus measuring 37 weeks 5 days. Borderline oligohydramnios. DATA REPOSITORY:
[2020-11-17 10:44] LABS: Source Nasopharynx
[2020-11-17 11:32] LABS: COVID-19 PCR Negative (Negative); Influenza A PCR Negative (Negative); Influenza B PCR Negative (Negative); RSV PCR Negative (Negative)
--- NOTE | 2020-11-17 12:28 | DI.VRAD_ITS ---
Addendum created by Jeremy Vaughan MD on 11/17/2020 1:04:40 PM EST: Findings were discussed with Melissa Mckeon at 11/17/2020 1:04 PM EST. Initial report created on 11/17/2020 12:27:31 PM EST: PROCEDURE INFORMATION: Exam: US After First Trimester, Transabdominal Exam date and time: 11/17/2020 11:53 AM Age: 20 years old Clinical indication: Other: Unknown , back pain, vaginal discharge of fluid; ; Patient HX: -no prior TECHNIQUE: Imaging protocol: Real-time transabdominal obstetrical ultrasound of the maternal pelvis and a second or third trimester with image documentation. COMPARISON: OB US 2-3 TRIMESTER TRANSABD*P 09/28/2016 9:58 AM FINDINGS: GESTATION: Gestation: Single intrauterine gestation. heart rate: 163 bpm. Presentation: Breech presentation. Placenta: The placenta is fundal in location. No abnormalities of the placenta. Amniotic fluid: Amniotic fluid volume: 5.3 cm. Largest pocket of fluid measures 2.6 cm. ANATOMY: Limited anatomy evaluated including kidney, bladder, three-vessel cord, stomach which appear normal. BIOMETRY: Gestational age (AUA): 37 weeks 5 days Estimated due date (AUA): 12/03/2020 Estimated weight: weight: 3347 g. Biparietal diameter: 8.9 cm. Gestational age 36 weeks 0 days. Head circumference: 33.5 cm. Gestational age 38 weeks 2 days. Femur length: 7.4 cm. Thirty-eight weeks 1 day. MATERNAL: Uterus: Unremarkable. Cervix: Cervix not well visualized. Adnexa: Ovaries are obscured by overlying bowel gas. IMPRESSION: 1. Single living intrauterine gestation in breech presentation. Gestational age based on this ultrasound 37 weeks 5 days. Estimated date of delivery 12/03/2020. 2. Borderline oligohydramnios. 3. Limited study and anatomic screen. Dictated and Authenticated by: Jeremy Vaughan MD. Ordering:JOAN Torres MD
[2020-11-17 12:40] LABS: Lactate 1.3 mmol/L (0.6-1.4)
[2020-11-17 12:58] LABS: C-Reactive Protein 1.99 mg/dL (0.0-0.3)
[2020-11-17 12:59] LABS: Uric Acid 4.9 mg/dL (2.6-6.0)
--- NOTE | 2020-11-17 13:13 | W.PM.HP.N ---
Date of service: 11/17/20 Time of Service: 13:14 Assessment and Plan Assessment and plan (1) , supervision, high-risk: Start date: 11/17/20 Start time: 13:29 Status: Acute Assessment and plan: Pt presents with no care at 37+5 with unknown found to be SROMed and in labor in the alvarez breech position. Informed consent obtained for delivery (2) Encounter for maternal care for breech presentation in paulino : Start date: 11/17/20 Start time: 13:30 Status: Acute Assessment and plan: needed for delivery (3) Hypertension affecting in third trimester: Start date: 11/17/20 Start time: 13:30 Status: Acute Assessment and plan: Preeclamptic labs are normal at this time. Plan to continue to monitor blood pressure. History of Present Illness Pt is a 20 yo who presented to the emergency department with complaints of back pain this morning at 9 am. She reports that she started feeling a lot of back pain and discharge yesterday and today she woke up and had a large gush of fluid when she presented to the emergency department. It was discovered that she was (unknown to patient) and after US evaluation was found to be 37+5 weeks and alvarez breech with an TERESITA of 5. A SROM check was performed by me and she was found to be grossly ruptured. A cervical exam found the patient to be 5/90/-1 with a bulging bag of membranes, GBS was also collected with this exam. I discussed the need to perform a delivery for breech presentation and labor. The patient verbalized understanding. Her OB history is significant for a prior vaginal delivery 3 years ago of a paulino that was reduced from triplets. She denies any history of high blood pressure, diabetes or asthma. She reports no surgeries and her medications are significant only for naproxen for back pain. Her medical history is significant for back pain, obesity, migraines and marijuana use. [facility] Medical History BMI 34.0-34.9,adult BMI 50.0-59.9, adult 07/07/2018 BMI= 48. 02/2019 BMI = 52. Contraceptive management (02/25/15) 03/2017 Xulane patch. Satisfactory compliance. Depression with anxiety Depression with anxiety (08/11/16) Lumbar pain (02/09/18) Onset during 2017 . No relief with NSAIDs or PT. Marijuana use, continuous (08/11/16) Migraine with aura Other social stressor Finances are tight. 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 Second hand smoke exposure (02/09/18) pt denies that she smokes tobacco. household memebers do. Family History Mother Heart disease PR. 08/31/18 from [place]. Myocardial infarction Asthma Father Diabetes Alcohol abuse Neoplasm pancreatic cancer Social History Smoking/Tobacco Use Status: Former Tobacco Use Second Hand Exposure: Yes Smoking risk assessment performed?: Yes Alcohol Intake: never Drug use: Daily Substance use type: marijuana Adopted: No Foster care: Yes (briefly 16-17) Household members: significant other, children and other Details: Deangelo LYNCH, ELIESER's mom and his 2 daughters 50% of time Number of Children: 1 Communication Needs: None Education Level: other Details: GED current occupation: Employed-stopped work at [employer] secondary to back pain Pets and animals: Yes (2 CATS, 2 DOGS, 2 FERRETS, 2 LIZARDS) Pets and animals: cat(s), dog(s), ferret(s) and other What is your relationship status?: living with partner Panel score (0-1 are the most socially isolated patients): 1 Do you feel safe at home: Yes Do you feel safe in your relationship?: Yes Additional Social history: ELIESER on disability for bipolar. His 2 daughters; 8yo and 3yo live at the house 50% of the time. Patient's mother from an acute PR 2017. Female Reproductive History Menstrual control method: patch History History 2 Para Hx # Term Pregnancies 1 Multiple births Hx # Pregnancies Ectopic pregnancies AB induced Hx Number of Living Children AB spontaneous Meds Home Medications and Allergies Home Medications Medication Instructions Recorded Confirmed Type hydroxyzine HCl 25 mg tablet 25 mg PO .COMPLEX PRN #60 tab 07/07/18 11/17/20 Rx naproxen 500 mg tablet 500 mg PO BID PRN 07/07/18 11/17/20 History norelgestromin 150 mcg-e.estradiol 1 patch TRANSDERMAL weekly #9 each 02/16/19 11/17/20 Rx 35 mcg/24 hr weekly transderm patch Allergies Allergy/AdvReac Type Severity Reaction Status Date / Time No Known Allergies Allergy Verified 11/22/19 15:30 Exam Narrative Exam Narrative: Gen: Alert and Oriented x 3, flat affect and appears to be in shock and processing information Neck: supple no masses CV: RRR, no murmers Lungs: clear to auscultation bilaterally Abdomen:soft/nt/nd, Fundus appropriate and non-tender Extremities: No edema Sterile speculum exam: +gross pooling SVE: /-1 Results Labs Result diagrams: 11/17/20 09:23 11/17/20 09:23 Labs: Laboratory Results - last 24 hr 11/17/20 11/17/20 11/17/20 08:40 09:23 09:23 WBC 13.53 H RBC 5.00 Hgb 11.2 Hct 37.2 MCV 74.4 L MCH 22.4 L MCHC 30.1 L RDW 16.0 H Plt Count 334 MPV 10.3 Immature Gran % 0.5 Neutrophils % 74.0 Lymphocytes % 19.4 Monocytes % 4.7 Eosinophils % 1.0 Basophils % 0.4 Nucleated RBC % 0 Absolute Neutrophils 10.01 H Absolute Lymphocytes 2.62 Absolute Monocytes 0.64 Absolute Eosinophils 0.14 Absolute Basophils 0.05 RBC Morphology See below Polychromasia Present Hypochromasia 1+ Microcytosis 2+ VBG Lactate Sodium 136 Potassium 4.0 Chloride 103 Carbon Dioxide 22.3 Anion Gap 10.7 BUN 9 Creatinine 0.7 Estimated GFR/1.73 m2 >= 60.00 Glucose 92 Uric Acid Calcium 9.0 Total Bilirubin 0.2 AST 16 ALT 18 Alkaline Phosphatase 155 H C-Reactive Protein Total Protein 7.4 Albumin 2.5 L Beta HCG, Quant 05492 H Urine Color Yellow Urine Clarity Sl cloudy Urine pH 7.0 Ur Specific [place] >= 1.030 H Urine Protein Trace H Urine Ketones Negative Urine Blood Trace-intact H Urine Nitrite Negative Urine Bilirubin Negative Urine Urobilinogen 0.2 Ur Leukocyte Esterase Negative Urine RBC 5-10 H Urine WBC 0-2 Ur Epithelial Cells Few Urine Crystals Moderate amorphous Urine Bacteria Few Urine Casts Negative Urine Mucus Moderate Ur Culture Indicated? Yes Urine Glucose Negative COVID-19 Source SARS-CoV-2 (PCR) Influenza Type A (PCR) Influenza Type B (PCR) RSV (PCR) Patient ABO/Rh 11/17/20 11/17/20 11/17/20 09:23 10:30 12:34 WBC RBC Hgb Hct MCV MCH MCHC RDW Plt Count MPV Immature Gran % Neutrophils % Lymphocytes % Monocytes % Eosinophils % Basophils % Nucleated RBC % Absolute Neutrophils Absolute Lymphocytes Absolute Monocytes Absolute Eosinophils Absolute Basophils RBC Morphology Polychromasia Hypochromasia Microcytosis VBG Lactate Sodium Potassium Chloride Carbon Dioxide Anion Gap BUN Creatinine Estimated GFR/1.73 m2 Glucose Uric Acid 4.9 Calcium Total Bilirubin AST ALT Alkaline Phosphatase C-Reactive Protein Total Protein Albumin Beta HCG, Quant Urine Color Urine Clarity Urine pH Ur Specific [place] Urine Protein Urine Ketones Urine Blood Urine Nitrite Urine Bilirubin Urine Urobilinogen Ur Leukocyte Esterase Urine RBC Urine WBC Ur Epithelial Cells Urine Crystals Urine Bacteria Urine Casts Urine Mucus Ur Culture Indicated? Urine Glucose COVID-19 Source Nasopharynx SARS-CoV-2 (PCR) Negative Influenza Type A (PCR) Negative Influenza Type B (PCR) Negative RSV (PCR) Negative Patient ABO/Rh O Positive 11/17/20 11/17/20 12:34 12:34 WBC RBC Hgb Hct MCV MCH MCHC RDW Plt Count MPV Immature Gran % Neutrophils % Lymphocytes % Monocytes % Eosinophils % Basophils % Nucleated RBC % Absolute Neutrophils Absolute Lymphocytes Absolute Monocytes Absolute Eosinophils Absolute Basophils RBC Morphology Polychromasia Hypochromasia Microcytosis VBG Lactate 1.3 Sodium Potassium Chloride Carbon Dioxide Anion Gap BUN Creatinine Estimated GFR/1.73 m2 Glucose Uric Acid Calcium Total Bilirubin AST ALT Alkaline Phosphatase C-Reactive Protein 1.99 H Total Protein Albumin Beta HCG, Quant Urine Color Urine Clarity Urine pH Ur Specific [place] Urine Protein Urine Ketones Urine Blood Urine Nitrite Urine Bilirubin Urine Urobilinogen Ur Leukocyte Esterase Urine RBC Urine WBC Ur Epithelial Cells Urine Crystals Urine Bacteria Urine Casts Urine Mucus Ur Culture Indicated? Urine Glucose COVID-19 Source SARS-CoV-2 (PCR) Influenza Type A (PCR) Influenza Type B (PCR) RSV (PCR) Patient ABO/Rh Last Vital Signs Temp 98.2 F 11/17/20 10:42 Pulse 86 11/17/20 10:50 Resp 20 11/17/20 10:42 BP 147/84 H 11/17/20 10:50 Pulse Ox 100 11/17/20 09:36 COVID-19 Screening Have you, or household traveled for leisure in last 14 days?: No Had IN PERSON contact w/suspected or confirmed C-19 person: No
[2020-11-17] MEDS: Normal Saline Flush 10 ML SYR IVP ×2 (13:28→22:29)
[2020-11-17] MEDS: Lactated Ringers 1,000 ML 200 ML IV (13:28)
[2020-11-17] MEDS: ceFAZolin 2 GM/50 ML BAG IVPB (13:31)
[2020-11-17] MEDS: AZITHROMYCIN 500 MG in Normal Saline 250 ML 250 MG IVPB (13:35)
[2020-11-17] MEDS: Sodium Citrate 30 ML CUP PO (13:46)
[2020-11-17] MEDS: Ondansetron 4 MG/2 ML VIAL IVP (14:00)
[2020-11-17] MEDS: Oxytocin/Normal Saline 30 UNIT/500 ML BAG 95 UNITS IV (14:35)
--- NOTE | 2020-11-17 14:39 | PLAC_PTH ---
PATIENT: Pat Montgomery LOC: OBS U#:[id number] AGE/SX: 20/F ROOM: OBS.304 RE11/17/[address]: Kayley Yañez : 2000 BED: A DIS: 11/20/2020 SPEC #: [id number] RECD: 11/18/20 12:54 STATUS: SOUJmi REQ #: [id number] AKIL: 11/17/20 14:[address]: Melissa Mckeon DEPT: Surgical Specimen RECD BY: Evangelina Dover ENTERED: 11/18/20 12:55 SP TYPE: PLAC OTHR DR: Evens Wong Tissues: 1 - PLACENTA (3RD TRIMESTER) Procedures: GROSS AND MICRO LEVEL 5 Comments: [id number]
[2020-11-17 14:50] LABS: Bilirubin Negative (Negative); Blood Negative (Negative); Clarity Clear (Clear); Glucose Negative (Negative); Ketones Negative (Negative); Leukocyte Esterase Negative (Negative); Nitrite Negative (Negative); Specific Gravity >= 1.030 (1.005-1.025); Urobilinogen 0.2 EU/dL (Up TO 0.2); pH 6.5 (5-8)
[2020-11-17 15:02] LABS: Bacteria Rare HPF (Negative); C & S Indicated? C&S Done As Ordered; Crystals Negative HPF (Negative); Epithelial Cells Negative HPF (Negative); Mucus Heavy (Negative); Other Cells Rare Yeast (Negative); RBC Negative HPF (0-2); WBC 0-2 HPF (0-5)
[2020-11-17] MEDS: Bupivacaine 0.25% Pres-Free 30 ML VIAL (15:18)
[2020-11-17] MEDS: Acetaminophen 325 MG TAB 650 MG PO (17:28)
--- NOTE | 2020-11-17 17:29 | ROE_ITS ---
Date of service: 11/17/20 Time of Service: 16:30 Operative Note Operative Note PROCEDURE: DATE OF SERVICE 11/17/2020 OPERATIVE NOTE PREOPERATIVE DIAGNOSIS: Unknown diagnosed at 37+5 EGA Breech presentation Prolonged rupture of membranes Gestational hypertension Obesity, BMI 48 POSTOPERATIVE DIAGNOSIS: Breech presentation delivered Gestational hypertension Obesity, BMI 48 PROCEDURE(S) PERFORMED: Primary Low Transverse Caesarean Section SURGEON: Melissa Mckeon MD, ANESTHESIA: Spinal DATE OF SURGERY: 17 November 2020 SPECIMEN(S) TO LAB: Cord blood Placenta INDICATIONS: Pt is a 20 yo who presented to the ED with complaint of back pain that started the day before and woke her at 7:30 this morning. She was found to be (unknown to patient) and had an ultrasound that placed her gestational age at 37+5 weeks EGA in the alvarez breech presentation with an EDC of 12/03/20 and oligohydramnios at 5.3cm. In addition, the patient was examined and found to have prolonged rupture of membranes and in labor at 5cm dilatation. The r isks and benefits of a delivery were discussed with the patient and informed consent was obtained for surgery. COMPLICATIONS: None apparent EBL: 700mL UOP: 150mL IVF: 850mL DRAINS: None FINDINGS: 1) Normal uterus, tubes and ovaries. 2) Viable male 3145 grams, Apgars 9,9 born at 1437pm 3) The uterus was closed with 2 layers 4) The patient may labor. DESCRIPTION OF PROCEDURE: The risks, benefits, indications and alternatives of the procedure were reviewed with the patient and informed consent was obtained. The patient was taken to the operating room with IV running. A time out was performed with the primary operating team. Spinal anesthesia was placed and found to be adequate. She was prepped and draped in the usual sterile fashion in the dorsal supine position with a leftward tilt, to include Briceno catheter placement. The abdomen was entered promptly through a Pfannenstiel incision. The low uterine incision was made in a transverse fashion with the scalpel. Clear amniotic fluid at amniotomy. The uterine incision was extended laterally manually. The butt was lifted out of the pelvis and breech extraction maneuvers were performed effectively. The mouth and face were wiped with the fetus in a prone position with stimulation. There was one minute of delayed cord clamping. The had a strong cry and was moving all 4 extremities vigorously. The was handed to the waiting customer field representative. The placenta was then removed manually. The uterus was cleared of all clots and debris. Cord blood was obtained The uterine incision was closed with a running, locking layer of 0 PDS and a second imbricating layer was placed of 0 PDS. Hemostasis was adequate. The uterus remained in the abdomen as visualization was excellent. The uterine incision was again inspected and noted to be hemostatic. The gutters were inspected and wiped of all clots and debris. The fascia and muscle belly was inspected and found to be hemostatic. The fascia was re-approximated from the left to the right corner in a running fashion with 0 PDS. The subcutaneous tissue was closed with 2-0 Vicryl. The skin was closed with 3-0 Monocryl. The incision was dressed with Skin Affix and an abdominal binder was placed. The patient tolerated the procedure well. Sponge, lap and needle counts were correct x2. Ancef 2 gm IVPB was given prior to onset of surgery as well as Azithromycin 500mg. Pitocin was given in her regular IV fluids was given after placenta delivery. The patient was taken to the recovery unit in good condition. There were no apparent operative complications. Melissa Mckeon MD,
[2020-11-17] MEDS: Ketorolac 30 MG/ML VIAL IVP (22:28)
[2020-11-17] MEDS: Lactated Ringers 1,000 ML 120 ML IV (22:29)
[2020-11-18 00:05] VITALS: BP 124/72; PULSE 74; RESP 18; TEMP 36.7; O2SAT 100
[2020-11-18] MEDS: Normal Saline Flush 10 ML SYR IVP (03:37)
[2020-11-18] MEDS: Ketorolac 30 MG/ML VIAL IVP ×2 (03:37→10:14)
[2020-11-18 03:39] VITALS: BP 109/64; PULSE 63; RESP 18; TEMP 36.8; O2SAT 99
[2020-11-18] MEDS: oxyCODONE 5 mg/Acetaminophen 325 mg TAB PO ×3 (07:22→20:05)
[2020-11-18 07:30] VITALS: BP 113/59; PULSE 59; RESP 14; TEMP 36.9
--- NOTE | 2020-11-18 08:13 | W.PM.OBPNV1 ---
Date of service: 11/18/20 Time of Service: 08:14 Assessment and Plan Assessment and plan (1) Status post primary low transverse section: Status: Acute Assessment and plan: Patient is postoperative day #1 status post primary low transverse section for unknown and presentation at term in the alvarez breech, ruptured. She is doing well postoperatively. We will discontinue her Briceno catheter, Hep-Lock her IV, encourage ambulation, and her diet. manager clinical services will be involved to the fact that she has had no care with this . She seems resolved and happy about her . (2) Hypertension affecting in third trimester: Status: Acute Assessment and plan: Stable (3) Encounter for maternal care for breech presentation in paulino : Status: Acute Subjective Subjective Interval history: Patient seen postoperative day #1 today. Her only complaint is that of some burning discomfort at the incision. She has not been out of bed as of yet. She is currently holding her baby which they have named CJ. She seems to be processing her new and her new status reasonably well. We lengthy conversation regarding both her physical status with pain control, ambulation, advancing diet along with involvement from social work instructor and behavioral health as needed. She is accepting of this. Patient comments: Incisional pain and Tolerating diet Patient's Mood: Somewhat flat affect, not tearful. [place] baby status: Doing well and Bottle feeding well feeding status: Exclusively formula feeding Exam Physical Exam Vital signs: Temp Pulse Resp BP Pulse Ox 98.4 F 59 L 14 113/59 L 99 11/18/20 07:30 11/18/20 07:30 11/18/20 07:30 11/18/20 07:30 11/18/20 03:39 Constitutional Constitutional: no acute distress HEENT Exam HEENT Exam: Normal Respiratory Exam Respiratory Exam: Normal Cardiovascular Exam Cardiovascular Exam: Normal Abdominal Exam Comments: Abdomen soft, mild tenderness, dressing in place with abdominal binder. Extremities Exam Extremity Exam: Normal; negative Calf Tenderness Neurological Exam Neurological Exam: Normal DetailedPsychiatric Exam Comments: Processing well. Flat affect. Denies depression. Has previously had no issues with depression or anxiety. Currently on no medications. Results Hemoglobin/Hematocrit: Hgb 11.2 g/dL (11.2-15.7) 11/17/20 09:23 Hct 37.2 % (36.0-46.0) 11/17/20 09:23 Abnormal Lab Findings: Abnormal Labs 11/17/20 11/17/20 11/17/20 08:40 09:23 09:23 WBC 13.53 H MCV 74.4 L MCH 22.4 L MCHC 30.1 L RDW 16.0 H Absolute Neutrophils 10.01 H Alkaline Phosphatase 155 H C-Reactive Protein Albumin 2.5 L Beta HCG, Quant 44587 H Ur Specific [place] >= 1.030 H Urine Protein Trace H Urine Blood Trace-intact H Urine RBC 5-10 H 11/17/20 11/17/20 12:34 14:20 WBC MCV MCH MCHC RDW Absolute Neutrophils Alkaline Phosphatase C-Reactive Protein 1.99 H Albumin Beta HCG, Quant Ur Specific [place] >= 1.030 H Urine Protein Trace H Urine Blood Urine RBC
[2020-11-18] MEDS: Ibuprofen 600 MG TAB PO ×2 (15:29→21:27)
[2020-11-18 16:15] VITALS: BP 135/89; PULSE 90; RESP 16; TEMP 36.7; O2SAT 98
[2020-11-18 20:31] VITALS: BP 118/72; PULSE 90; RESP 16; TEMP 36.8; O2SAT 100
[2020-11-19] MEDS: oxyCODONE 5 mg/Acetaminophen 325 mg TAB PO ×5 (00:58→21:28)
[2020-11-19 01:00] VITALS: BP 126/84; PULSE 98; RESP 20; TEMP 36.5; O2SAT 97
[2020-11-19] MEDS: Ondansetron O.D.T. 4 MG TABEF PO (06:30)
--- NOTE | 2020-11-19 07:43 | OBPPV_ITS ---
Date of service: 11/19/20 Time of Service: 07:43 Assessment and Plan Assessment and plan (1) Status post primary low transverse section: Status: Acute Assessment and plan: Postoperative day #2 status post primary low transverse section for breech, labor, unknown status. This morning patient is having some nausea and vomiting, increase in pain due to the episodes of vomiting. Vital signs are stable. She is passing flatus. Antiemetics are ordered. IV if continues to have nausea. If continued vomiting, may transition to n.p.o. status temporarily. Encourage ambulation. We will continue to work on social issues including assessment of needs for home discharge. (2) Postoperative nausea and vomiting: Status: Acute Assessment and plan: Antiemetics ordered, IV as needed. Subjective Subjective Interval history: Patient seen and examined this morning complains of abdominal pain, incisional pain, nausea and vomiting. She slept well through the night however woke with nausea and vomiting this morning which caused an increase in her incisional pain. She denies shortness of breath, chest pain. She has been ambulating. She is passing gas. Patient comments: Incisional pain and Flatus present Patient's Mood: Flat affect, feeling poorly baby status: Bottle feeding well and Rooming in feeding status: Exclusively formula feeding Exam Physical Exam Vital signs: Temp Pulse Resp BP Pulse Ox 97.7 F 98 H 20 126/84 97 11/19/20 01:00 11/19/20 01:00 11/19/20 01:00 11/19/20 01:00 11/19/20 01:00 Constitutional Constitutional: obese and cooperative Comments: Feels poorly Detailed HEENT Exam Eye: Present EOMI ENT: Present mucous membranes moist Respiratory Exam Respiratory Exam: Normal Abdominal Exam Abdomen: Tender Comments: Abdomen soft, hyperactive bowel sounds. Incision clean dry intact. No erythema or ecchymosis. Extremities Exam Extremity Exam: Normal; negative Calf Tenderness Skin Exam Skin Exam: Normal Neurological Exam Neurological Exam: Normal DetailedPsychiatric Exam Psych Exam: Cooperative and Anxious Comments: Flat affect Results Hemoglobin/Hematocrit: Hgb 11.2 g/dL (11.2-15.7) 11/17/20 09:23 Hct 37.2 % (36.0-46.0) 11/17/20 09:23 Abnormal Lab Findings: Abnormal Labs 11/17/20 11/17/20 11/17/20 08:40 09:23 09:23 WBC 13.53 H MCV 74.4 L MCH 22.4 L MCHC 30.1 L RDW 16.0 H Absolute Neutrophils 10.01 H Alkaline Phosphatase 155 H C-Reactive Protein Albumin 2.5 L Beta HCG, Quant 47424 H Ur Specific [place] >= 1.030 H Urine Protein Trace H Urine Blood Trace-intact H Urine RBC 5-10 H 11/17/20 11/17/20 12:34 14:20 WBC MCV MCH MCHC RDW Absolute Neutrophils Alkaline Phosphatase C-Reactive Protein 1.99 H Albumin Beta HCG, Quant Ur Specific [place] >= 1.030 H Urine Protein Trace H Urine Blood Urine RBC
[2020-11-19 08:00] VITALS: BP 120/80; PULSE 93; RESP 20; TEMP 36.7; O2SAT 99
[2020-11-19 11:53] VITALS: BP 124/84; PULSE 90; RESP 18; TEMP 36.6; O2SAT 96
[2020-11-19] MEDS: Docusate Sodium 100 MG CAP PO (12:04)
--- NOTE | 2020-11-19 14:15 | PDOC.CMPRO ---
- If Service Date Differs Date of service: 11/18/20 Time of Service: 09:15 Care Management Progress Note FANNY receives a phone call from SEDRICK Barrera, who requests I meet with Pat to offer resources. Pat recently gave to her son and she is in need of baby supplies and supports. Pat shares she lives in [facility] with the baby's father, Romain Noriega, her 3-year-old daughter, and Romain's grandparents. 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 Pat states friends and family have already provided her with a car seat and a crib. She additionally has a baby bathtub at home. She still needs baby bottles, diapers, wipes, and clothes. She is already receiving assistance through the [facility] office who will be able to provide formula. With respect to family supports, Pat says her partner's grandparents and father are very supportive. When asked about her own family, she shares her mom a few years ago and her mom was the person she was closest to. FANNY obtains verbal permission to contact [employer] and other agencies to enlist their help in supporting Pat and her family.
[2020-11-19 15:22] LABS: *AMPHETAMINES SCREEN URINE Negative (Negative); *BARBITURATES SCREEN URINE Negative (Negative); *BENZODIAZEPINES SCREEN URINE Negative (Negative); Cannabinoids THC Negative (Negative); Cocaine Screen,Urine Negative (Negative); METHADONE URINE SCREEN Negative (Negative); OPIATES URINE SCREEN Negative (Negative)
[2020-11-19 15:23] LABS: Tricyclic Antidepressants Negative (Negative)
[2020-11-19 16:20] VITALS: BP 124/87; PULSE 95; RESP 20; TEMP 36.8; O2SAT 97
[2020-11-19] MEDS: Ibuprofen 600 MG TAB PO (16:38)
[2020-11-19 20:00] VITALS: BP 135/81; PULSE 86; RESP 18; TEMP 36.7; O2SAT 97
[2020-11-20 02:28] VITALS: BP 140/92; PULSE 94; RESP 20
[2020-11-20] MEDS: Ibuprofen 600 MG TAB PO ×2 (03:50→12:16)
[2020-11-20] MEDS: oxyCODONE 5 mg/Acetaminophen 325 mg TAB PO ×3 (03:50→17:54)
[2020-11-20 08:35] VITALS: BP 132/89; PULSE 96; RESP 20; TEMP 36.4; O2SAT 96
--- NOTE | 2020-11-20 11:35 | W.PM.OBPNV1 ---
Date of service: 11/20/20 Time of Service: 11:35 Assessment and Plan Assessment and plan (1) Status post primary low transverse section: Status: Acute Assessment and plan: Postoperative day #3 status post primary low transverse section for breech presentation at term and unknown status. She is doing well postoperative day #3. She has ultra services and support in place. She is bottlefeeding her male . She has been ambulating, tolerating regular diet and oral pain medication. She will be discharged home later today or tomorrow. will be circumcised today. (2) Hypertension affecting in third trimester: Status: Acute Assessment and plan: Blood pressure is stable Subjective Subjective Interval history: Patient seen and examined this morning. Doing well. Pain better controlled today. No further nausea or vomiting. She has ambulated. She is bottlefeeding her son. Patient comments: Pain well controlled, Incisional pain and Tolerating diet baby status: Doing well and Bottle feeding well feeding status: Exclusively formula feeding Exam Physical Exam Vital signs: Temp Pulse Resp BP Pulse Ox 97.5 F L 96 H 20 132/89 96 11/20/20 08:35 11/20/20 08:35 11/20/20 08:35 11/20/20 08:35 11/20/20 08:35 Constitutional Constitutional: no acute distress HEENT Exam HEENT Exam: Normal Respiratory Exam Respiratory Exam: Normal Cardiovascular Exam Cardiovascular Exam: Normal Abdominal Exam Abdomen: Tender Comments: Soft. Incision clean dry intact Extremities Exam Extremity Exam: Edema (1+); negative Calf Tenderness Skin Exam Skin Exam: Normal Detailed Neurological Exam Neurological: Present alert and oriented X3 DetailedPsychiatric Exam Psych Exam: Normal Thougth Process, Cooperative, Anxious and Depressed Comments: Flat affect Results Hemoglobin/Hematocrit: Hgb 11.2 g/dL (11.2-15.7) 11/17/20 09:23 Hct 37.2 % (36.0-46.0) 11/17/20 09:23 Abnormal Lab Findings: Abnormal Labs 11/17/20 11/17/20 11/17/20 08:40 09:23 09:23 WBC 13.53 H MCV 74.4 L MCH 22.4 L MCHC 30.1 L RDW 16.0 H Absolute Neutrophils 10.01 H Alkaline Phosphatase 155 H C-Reactive Protein Albumin 2.5 L Beta HCG, Quant 25646 H Ur Specific Taylor >= 1.030 H Urine Protein Trace H Urine Blood Trace-intact H Urine RBC 5-10 H 11/17/20 11/17/20 12:34 14:20 WBC MCV MCH MCHC RDW Absolute Neutrophils Alkaline Phosphatase C-Reactive Protein 1.99 H Albumin Beta HCG, Quant Ur Specific Taylor >= 1.030 H Urine Protein Trace H Urine Blood Urine RBC 11/17/20 12:55 Vaginal/Rectal Group B Streptococcus Screen (VICKY) - Final 11/17/20 14:20 Urine - Voided Urine Culture - Final 11/17/20 08:40 Urine - Reflex from Ua Urine Culture - Final Gram Positive Tracey,Mixed
--- NOTE | 2020-11-20 11:44 | DSE_ITS ---
Date of service: 11/20/20 Time of Service: 11:44 DS: Diagnosis Discharge Diagnosis (1) Status post primary low transverse section: Status: Acute (2) Hypertension affecting in third trimester: Status: Acute (3) Other social stressor: Status: None (4) Depression with anxiety: Status: Acute Discharge Plan Disposition Patient Disposition: HOME Condition: Stable Discharge Details Reason For Visit: Admit Date/Time: 11/17/20 09:35 Admit Provider: Kayley Yañez Attending Provider: Kayley Yañez Primary Care Provider: Evens Wong Hospital Course Hospital Course: Patient is a 20-year-old female who presented initially on Wednesday to [facility] emergency department with complaints of back pain and urinary incontinence. She had been evaluated by the emergency department staff and was found to be . She had bedside ultrasound which confirmed intrauterine in the breech presentation of unknown gestation. Patient did not know that she was . Service Establishment Attendant on-call was consulted and patient had an ultrasound performed confirming intrauterine in the breech presentation with low fluid assumed spontaneous rupture and 37 and 5 weeks by that scan. On presentation to the center she was found to be grossly ruptured, alvarez breech, and 5 cm dilated. The risk benefit targets of delivery have been explained to patient that she was taken for an unscheduled primary section. Her postoperative course was uncomplicated. She did have a mild amount of nausea postoperative day #2 which resolved. She has been ambulating, tolerating regular diet and oral pain medication with stable vital signs. Care management social science professor were contacted due to her need for support upon discharge. She is discharged home postoperative day #3 ambulating, tolerating very diet and oral pain medication. She did have elevated blood pressures upon presentation but remained stable throughout the course of her stay with us. Home Meds and New Rx's Prescriptions: New acetaminophen [Tylenol] 325 mg Tablet 650 mg PO Q4H PRN PRNQty: 30 RF: 0 docusate sodium [Colace] 100 mg Capsule 100 mg PO BID PRN PRNQty: 30 RF: 0 ibuprofen [IBU] 600 mg Tablet 600 mg PO Q6H PRN PRNQty: 30 RF: 1 oxycodone-acetaminophen 5-325 mg Tablet 1 - 2 tab PO Q4H PRN PRNQty: 14 RF: 0 Discontinued Xulane 150-35 mcg/24 hr patch weekly 1 patch Transdermal weekly Qty: 9 RF: 5 No Action naproxen 500 mg tablet 500 mg PO BID PRNRF: 0 hydroxyzine HCl 25 mg tablet 25 mg PO .COMPLEX PRN (Reason: itching) Qty: 60 RF: 3 Discharge Instructions Additional Instructions: Follow-up with women's wellness in 1 week Stand Alone Forms: BC Discharge Instruc Activity:: Pelvic rest, no heavy lif Equipment/Supplies:: No Equipment Needed Diet:: As Tolerated Discharge Orders Discharge Orders: Discharge Order (Routine); Ordered 11/20/20 Ordered By: Fabby Weber OB:DS Summary Contraception Discussed Contraception Discussed: Yes (Desires tubal ligation, however considering IUD), Gender-Baby A: Male weight: 6 lb 14.937 oz Status at Discharge Functional status at discharge: independent ambulation Overall status at discharge: patient is progressing back to baseline Mental Status: mental status grossly normal Speech and Movement: speech and movement normal Mood: congruent mood Affect: blunted Exam Physical Exam Vital signs: Temp Pulse Resp BP Pulse Ox 97.5 F L 96 H 20 132/89 96 11/20/20 08:35 11/20/20 08:35 11/20/20 08:35 11/20/20 08:35 11/20/20 08:35 Constitutional Comments: See physical examination from progress note dated 11/20/2020 COUNT INCLUDES THE [facility] Medical History BMI 34.0-34.9,adult BMI 50.0-59.9, adult 07/07/2018 BMI= 48. 02/2019 BMI = 52. Contraceptive management (02/25/15) 03/2017 Xulane patch. Satisfactory compliance. Depression with anxiety Depression with anxiety (08/11/16) Lumbar pain (02/09/18) Onset during 2017 . No relief with NSAIDs or PT. Marijuana use, continuous (08/11/16) Migraine with aura Other social stressor Finances are tight. 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 Second hand smoke exposure (02/09/18) pt denies that she smokes tobacco. household memebers do. Surgical History (Updated 11/18/20 @ 08:16 by Fabby Weber DO) Status post primary low transverse section Family History Mother Heart disease [place]. 08/31/18 from [place]. Myocardial infarction Asthma Father Diabetes Alcohol abuse Neoplasm pancreatic cancer Social History Smoking/Tobacco Use Status: Former Tobacco Use Second Hand Exposure: Yes Smoking risk assessment performed?: Yes Alcohol Intake: never Drug use: Daily Substance use type: marijuana Adopted: No Foster care: Yes (briefly 16-17) Household members: significant other, children and other Details: ELIESER SERRA, Deangelo Hernandez, ELIESER's mom and his 2 daughters 50% of time Number of Children: 1 Communication Needs: None Education Level: other Details: GED current occupation: Employed-stopped work at [employer] secondary to back pain Pets and animals: Yes (2 CATS, 2 DOGS, 2 FERRETS, 2 LIZARDS) Pets and animals: cat(s), dog(s), ferret(s) and other What is your relationship status?: living with partner Panel score (0-1 are the most socially isolated patients): 1 Do you feel safe at home: Yes Do you feel safe in your relationship?: Yes Additional Social history: ELIESER on disability for bipolar. His 2 daughters; 8yo and 3yo live at the house 50% of the time. Patient's mother from an acute [place] 2017. Female Reproductive History Menstrual control method: patch History History 2 Para Hx # Term Pregnancies 1 Multiple births Hx # Pregnancies Ectopic pregnancies AB induced Hx Number of Living Children AB spontaneous DS: Data Vitals/I&O Vitals and I&O: Vital Signs Temperature 97.5 F L 11/20/20 08:35 Temperature Source Skin 11/17/20 08:15 Pulse 96 H 11/20/20 08:35 Pulse Rhythm Regular 11/20/20 08:35 Respiratory Rate 20 11/20/20 08:35 Respiratory Effort Non-Labored 11/17/20 08:19 Blood Pressure 132/89 11/20/20 08:35 Blood Pressure Mean 103 11/20/20 08:35 Blood Pressure Position Sitting 11/17/20 08:15 Pulse Oximetry 96 11/20/20 08:35 Oxygen Delivery Method Room Air 11/17/20 10:42 Oxygen Flow Rate 0 11/17/20 10:42 Pain Level 3 02/03/21 08:35 Comment 11/20/20 02:28 Intake & Output 11/19/20 11/19/20 11/20/20 11:59 23:59 11:59 Intake Total 750 / 1150 400 / 1150 450 / 450 Output Total 1400 / 1400 Balance -650 / -250 400 / -250 450 / 450 Intake: Oral 750 / 1150 400 / 1150 450 / 450 Output: Urine 1350 / 1350 Emesis 50 / 50 Other: Urine Color Straw Data Completed and Pending Labs on day of discharge: Labs from last 24 hours 11/19/20 14:00 Urine Opiates Screen Negative Urine Methadone Screen Negative Ur Barbiturates Screen Negative Ur Tricyclics Screen Negative Ur Amphetamines Screen Negative U Benzodiazepines Scrn Negative Urine Cocaine Screen Negative Ur THC Screen Negative
[2020-11-20] MEDS: Docusate Sodium 100 MG CAP PO (12:17)
[2020-11-20 13:12] VITALS: BP 148/79; PULSE 120; RESP 20; TEMP 36.6; O2SAT 95
[2020-11-20 17:00] VITALS: BP 139/86; PULSE 90; RESP 20; TEMP 36.7; O2SAT 98
[2020-11-20] MEDS: Patch Removal TD (18:00)
== END 2020-11-20 18:30 | disposition home or self-care (01) | DRG 787 ==
LOC: ER 08:19 → OBS 10:03
PROVIDERS: Obstetrics & Gynecology; Admitting Provider Obstetrics & Gynecology Gynecology; Emergency Provider Registered Nurse Emergency; PCP Nurse Practitioner Family; Visit Provider Obstetrics & Gynecology Gynecology
PROC: 10D00Z1 Extraction of Products of Conception, Low, Open Approach (ICD-10-PCS; CPT 59514; principal; 2020-11-17 14:00)
DX: O32.1XX0 Maternal care for breech presentation, not applicable or unspecified (principal); O99.324 Drug use complicating childbirth; O99.354 Diseases of the nervous system complicating childbirth; O13.4 Gestational [pregnancy-induced] hypertension without significant proteinuria, complicating childbirth; O99.344 Other mental disorders complicating childbirth; F41.8 Other specified anxiety disorders; F12.90 Cannabis use, unspecified, uncomplicated; Z3A.37 37 weeks gestation of pregnancy; Z37.0 Single live birth; M54.5 Low back pain; G43.109 Migraine with aura, not intractable, without status migrainosus; O99.214 Obesity complicating childbirth; O42.92 Full-term premature rupture of membranes, unspecified as to length of time between rupture and onset of labor; E66.9 Obesity, unspecified; R11.2 Nausea with vomiting, unspecified; O75.89 Other specified complications of labor and delivery
CPT/HCPCS: 59514; 36415; 76816; 80053; 80307; 81025; 86900; 86901; 87637; 99223; 99285; 81003; 81015; 83605; 84550; 84702; 85025; 86140; 87081; 87086; 88307; 99284; J0456; J0690; J1100; J1885; J2405; J3010; J3490

== ENCOUNTER 2020-11-22 07:59 | Outpatient (CLI) | payer MEDICAID, SELFPAY ==
[2020-11-22 10:54] VITALS: BP 124/71; PULSE 91; RESP 18
== END 2020-11-22 11:04 | disposition home or self-care (01) ==
PROVIDERS: PCP Nurse Practitioner Family; Visit Provider Obstetrics & Gynecology Gynecology
DX: O90.89 Other complications of the puerperium, not elsewhere classified (principal)
CPT/HCPCS: 99211

== ENCOUNTER 2020-12-10 07:50 | Emergency (ER) | payer MEDICAID, SELFPAY ==
[2020-12-10 07:56] VITALS: BP 127/83; PULSE 88; RESP 18; TEMP 35.7; O2SAT 96
--- NOTE | 2020-12-10 08:17 | ED.GENADUL_ITS ---
Discharge Plan Disposition Patient Disposition: HOME Condition: Good Discharge Details Clinical Impression: Foreign body of ear, left, Bilateral impacted cerumen Primary Care Provider: Evens Wong ED Provider: Viola Nobles Home Meds and New Rx's Prescriptions: Continued nystatin 100,000 unit/gram cream 1 applic topical BID Qty: 30 RF: 2 hydroxyzine HCl 25 mg tablet 25 mg PO .COMPLEX PRN (Reason: itching) Qty: 60 RF: 3 acetaminophen [Tylenol] 325 mg Tablet 650 mg PO Q4H PRN PRNQty: 30 RF: 0 docusate sodium [Colace] 100 mg Capsule 100 mg PO BID PRN PRNQty: 30 RF: 0 ibuprofen [IBU] 600 mg Tablet 600 mg PO Q6H PRN PRNQty: 30 RF: 1 naproxen 500 mg tablet 500 mg PO DAILY PRNRF: 0 Discharge Instructions Instructions: Impactaci?n de Cerumen (ED), Ear Foreign Body (ED) Additional Instructions: Alternate tylenol and motrin as needed and directed for pain. You can apply topical antibiotic ointment with a Q-tip to your left ear canal 1- 2 times daily over the next few days. Use hydrogen peroxide drops or hydrogen peroxide soaked cotton balls to place in your right ear 1-2 times daily to help with removing the earwax from your right ear. Follow up with your primary care doctor in 1 week as needed. Return to the emergency department with any worsening or new concerning symptoms. Discharge Data Discharge Physician: Viola Nobles Medical Decision Making 20-year-old female presents with pain and ringing in her left ear after suspecting a cockroach called in this morning at 7 AM. She appears nontoxic. Her TMs are obstructed bilaterally with cerumen but on the left side there appears to be a possible bug within the canal. I was able to remove cerumen and a bug from her left ear canal with tweezers and loop. There appears to be remaining cerumen and possibly an additional bug or remainder of a bug remaining. Patient is requesting that we flush the ear instead of continuing to try to grab. Able to flush out the left ear with saline and hydrogen peroxide and able to remove what was remaining in the left ear canal which was only cerumen. The left ear canal and TM appeared normal to inspection after flushing. She complained of some stinging in her left ear which was likely due to removing epidermis with removing the cerumen. Bacitracin was placed in the left ear canal with use of Q-tip. Advised to follow up with the primary care doctor for re-evaluation as needed. Usual and customary return precautions given prior to discharge. HPI General Mode of arrival: ambulatory . Date/Time Provider Initiated Documentation: 12/10/20 08:09 . Limitations to Documentation: no limitations . Information obtained by: patient . HPI Narrative: Patient is a 20-year-old female with a history of hypertension, daily marijuana use, depression and anxiety, 1 month status post delivery of an unknown presents for concern for cockroach in her left ear. Patient states she was laying in bed at 7 AM this morning and felt pain and ringing in her left ear. She states she called her primary care doctor and they advised her to use hydrogen peroxide and a bulge syringe but she denied any relief with this and was advised to come to the ER for further evaluation. Patient denies fever or any symptoms prior to this this morning. Related Data Home Medications Medication Instructions Recorded Confirmed hydroxyzine HCl 25 mg tablet 25 mg PO .COMPLEX PRN #60 tab 07/07/18 12/10/20 acetaminophen [Tylenol] 650 mg PO Q4H PRN PRN #30 tab 11/20/20 12/10/20 docusate sodium [Colace] 100 mg PO BID PRN PRN #30 cap 11/20/20 12/10/20 ibuprofen [IBU] 600 mg PO Q6H PRN PRN #30 tab 11/20/20 12/10/20 nystatin 100,000 unit/gram topical 1 applic TOPICAL BID #30 g 12/03/20 12/10/20 cream naproxen 500 mg PO DAILY PRN 12/10/20 12/10/20 Previous Rx's Medication Instructions Recorded hydroxyzine HCl 25 mg tablet 25 mg PO .COMPLEX PRN #60 tab 07/07/18 acetaminophen [Tylenol] 650 mg PO Q4H PRN PRN #30 tab 11/20/20 docusate sodium [Colace] 100 mg PO BID PRN PRN #30 cap 11/20/20 ibuprofen [IBU] 600 mg PO Q6H PRN PRN #30 tab 11/20/20 nystatin 100,000 unit/gram topical 1 applic TOPICAL BID #30 g 12/03/20 cream Allergies Allergy/AdvReac Type Severity Reaction Status Date / Time No Known Allergies Allergy Verified 12/10/20 07:59 General Stated Complaint: EarProblem SAGE: 4 Review of Systems All systems reviewed & are unremarkable except as noted in HPI and below Constitutional Constitutional: Reports as per HPI, Denies chills and Denies fever(s) Eyes Eyes: Denies blurry vision ENT Ears, Nose, Mouth, and Throat: Denies dizziness, Denies sore throat and Denies throat swelling Cardiovascular Cardiovascular: Denies chest pain and Denies dyspnea Respiratory Respiratory: Denies cough and Denies dyspnea Gastrointestinal Gastrointestinal: Denies abdominal pain, Denies diarrhea and Denies vomiting Genitourinary Genitourinary: Denies hematuria and Denies dysuria Musculoskeletal Musculoskeletal: Denies back pain and Denies numbness Integumentary/Breasts Skin/Breast: Denies lesions and Denies rash Neurologic Neurologic: Denies dizziness, Denies localized weakness and Denies numbness Allergic/Immunologic Allergic/Immunologic: Denies throat swelling [facility] Medical History BMI 34.0-34.9,adult BMI 50.0-59.9, adult 07/07/2018 BMI= 48. 02/2019 BMI = 52. Contraceptive management (02/25/15) 03/2017 Xulane patch. Satisfactory compliance. Depression with anxiety Depression with anxiety (08/11/16) Lumbar pain (02/09/18) Onset during 2017 . No relief with NSAIDs or PT. Marijuana use, continuous (08/11/16) Migraine with aura Other social stressor Finances are tight. 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 Second hand smoke exposure (02/09/18) pt denies that she smokes tobacco. household memebers do. Yeast dermatitis Surgical History Status post primary low transverse section Family History Mother Heart disease [place]. 08/31/18 from [place]. Myocardial infarction Asthma Father Diabetes Alcohol abuse Neoplasm pancreatic cancer Social History Smoking/Tobacco Use Status: Former Tobacco Use Second Hand Exposure: Yes Smoking risk assessment performed?: Yes Alcohol Intake: never Drug use: Daily Substance use type: former substance user and marijuana Adopted: No Foster care: Yes (briefly 16-17) Household members: significant other, children and other Details: Deangelo LYNCH, ELIESER's mom and his 2 daughters 50% of time Number of Children: 1 Communication Needs: None Education Level: other Details: GED current occupation: Employed-stopped work at [employer] secondary to back pain Pets and animals: Yes (2 CATS, 2 DOGS, 2 FERRETS, 2 LIZARDS) Pets and animals: cat(s), dog(s), ferret(s) and other What is your relationship status?: living with partner Panel score (0-1 are the most socially isolated patients): 1 Do you feel safe at home: Yes Do you feel safe in your relationship?: Yes Female Reproductive History Menstrual control method: patch History History 2 Para Hx # Term Pregnancies 1 Multiple births Hx # Pregnancies Ectopic pregnancies AB induced Hx Number of Living Children AB spontaneous Exam Const General: cooperative, healthy appearing and no acute distress HENMT Head: normal to inspection Ears: hearing grossly normal bilaterally, external ears normal, mastoids normal bilaterally, no periauricular adenopathy, TM abnormal obstructed by cerumen bilaterally and other (Questionable foreign body in left ear canal, possibly a bug.) General nose exam: external nose normal and nares normal Mouth: oral mucosae normal Eyes General: appearance normal, both eyes and all related structures Neck Neck: normal visual inspection Resp Effort & Inspection: normal respiratory effort and able to speak in complete sentences Cardio Rate: regular rate Skin General skin exam: no rashes or lesions noted Neuro General: patient alert, patient awake and patient oriented x3 Motor: muscle tone normal throughout Extrem General: normal to inspection and full ROM Psych Appearance: grossly normal Affect: normal affect Course Vital Signs Vital signs: Vital Signs Temperature 96.3 F L 12/10/20 07:56 Pulse 88 12/10/20 07:56 Respiratory Rate 18 12/10/20 07:56 Blood Pressure 127/83 12/10/20 07:56 Pulse Oximetry 96 12/10/20 07:56 Temperature 96.3 F L 12/10/20 07:56 Temperature Source Skin 12/10/20 07:56 Pulse 88 12/10/20 07:56 Respiratory Rate 18 12/10/20 07:56 Respiratory Effort Non-Labored 12/10/20 08:02 Blood Pressure 127/83 12/10/20 07:56 Blood Pressure Position Sitting 12/10/20 07:56 Pulse Oximetry 96 12/10/20 07:56 Oxygen Delivery Method Room Air 12/10/20 07:56 Oxygen Flow Rate 0 12/10/20 07:56 Pain Level 1 12/10/20 07:56
== END 2020-12-10 09:08 | disposition home or self-care (01) ==
PROVIDERS: Emergency Provider Physician Assistant; PCP Nurse Practitioner Family
DX: T16.2XXA Foreign body in left ear, initial encounter (principal); X58.XXXA Exposure to other specified factors, initial encounter; H61.23 Impacted cerumen, bilateral; I10 Essential (primary) hypertension
CPT/HCPCS: 69209; 99282

== ENCOUNTER 2022-01-07 21:24 | Outpatient (REF) | payer MEDICAID, SELFPAY ==
[2022-01-09 13:12] LABS: COVID-19 RT-PCR UVMMC Result Negative (Negative)
== END 2022-01-07 21:25 | disposition home or self-care (01) ==
LOC: LBN 21:24
PROVIDERS: PCP Nurse Practitioner Family; Visit Provider Physician Assistant Medical
DX: Z20.822 Contact with and (suspected) exposure to COVID-19 (principal); J06.9 Acute upper respiratory infection, unspecified; J02.9 Acute pharyngitis, unspecified
CPT/HCPCS: U0003; 87070

== ENCOUNTER 2023-10-14 16:42 | Emergency (ER) | payer MEDICAID, SELFPAY ==
[2023-10-14 16:47] VITALS: BP 147/92; PULSE 86; RESP 16; TEMP 36.7; O2SAT 96
--- OUTSIDE RECORDS SUMMARY | 2023-10-14 16:58 | XMS_ITS | Continuity of Care Document ---
Author Name [facility] Address [address] [place] [id number] Organization [facility] Address [address] [place] [id number] Care Team Providers Care Dampproofer Name Role Phone Out of Town, Provider Primary Care Physician Yaneth Parsons Attending Physician [phone] Allergies, Adverse Reactions, Alerts Allergen Type Severity Reaction Last Updated Verified Status Penicillins Allergy Moderate hives July 22, 2018 Y Act benjamin Medications Active Medications Medication Dose Units Route Sig Start Date Status Trazodone 50 MG ORAL DAILY July 22, 2018 Active Prazosin 1 MG ORAL DAILY July 22, 2018 Active Melatonin 6 MG ORAL BEDTIME July 22, 2018 Active Escitalopram Oxalate [Lexapro] 20 MG ORAL DAILY O ct2017 Active Problem List Inactive/Resolved Problems Medical Problem Onset Date Status Unspecified sprain of right hip, initial encount er Inactive Procedures Procedure Date Status Ankle 3 vw Min RT November 15, 2018 completed Hip 2 vw Min RT July 22, 2018 completed Relevant Diagnostic Tests and/or Laboratory Data No known relevant diagnostic tests, laboratory data, and/or discharge summary. Advance Directives Advance Directive Response Recorded Date/ Time Do we [place] [facility] [place] July 22, 2018 8:53pm Does patient have an Advanced Directive? No July 22, 2018 8:53pm Pt has a Living Will? No July 22, 2018 8:53pm Pt has a Power of Mortgage Counselor? No Julo 2017 8:53pm Chief Complaint and Reason for Visit Encounter Admit Date Chief Complaint Reason for V isit Departed Clinical November 15, 2018 12:36pm Xray Hospital Discharge Instructions No known hospital discharge instructions. Hospital Discharge Medications Medication Dose Units Route Sig Qty Days Order Date Status Ins tructions Trazodone 50 MG ORAL DAILY 2017 Active Prazosin 1 MG ORAL DAILY July 22, 2018 Active Melatonin 6 MG ORAL BEDTIME Octobe r 2017 Active Escitalopram Oxalate 20 MG ORAL DAILY July 22, 2018 Active Encounters Encounter Facility Location Admit/Visit Date Discharge/Departure Date Attending Provider Departed Clinical [facility] DI Walk In [facility] November 15, 2018 12:36pm November 15, 2018 12:37pm Yaneth Perez Departed Emergency [facility] Emergency Department July 22, 2018 8:14pm July 22, 2018 9:39pm Functional Status No known functional status. Immunizations No known immunizations. Payers Payer Name Policy Type Covered Constitution Party Covered Constitution Party Id Relationship Subscriber Subscriber Id SELF PAY Personal Plan of Care No Known Plan of Care Information Social History Query Response Start Date Stop Date Smoking Status Current every day smoker Vital Signs Vital Reading Result Reference Range Collection Date/Time Height n/a Weight 89.811 kg July 22, 2018 8:17pm Temperature 98.1 F 97.6 F-99.6 F July 22 8 8:17pm Pulse 62 BPM 60-100 July 22, 2018 8:17pm Respiration 16 RPM -July 22, 2018 8:17pm Pulse Oximetry 100 % 95-100 July 22 8:17pm Blood Pressure Systolic 133 100-140 Octo jannet 2017 8:17pm Blood Pressure Diastolic 69 50-85 Oct joselyn 2017 8:17pm Body Mass Index n/a
--- OUTSIDE RECORDS SUMMARY | 2023-10-14 16:58 | XMS_ITS | Continuity of Care Document ---
Author Name [facility] Address [address] [place] [address] Organization [facility] Address [address] [place] [address] Care Team Providers Care Kiln Setter Name Role Phone Out of Town, Provider Primary Care Physician Kailey vailable Allergies, Adverse Reactions, Alerts Allergen Type Severity [...] ORAL DAILY O ct2017 Active Problem List Active Problems Medical Problem Onset Date Status Unspecified sprain of right hip, initial encount er Active Procedures Procedure Date Status Hip 2 vw Min RT July 22, 2018 active Relevant Diagnostic Tests and/or Laboratory Data No known relevant diagnostic tests, laboratory data, and/or discharge summary. Advance Directives Advance Directive Response Recorded Date/ Time Do we [place] [facility] [place] July 22, 2018 8:53pm Does patient have an Advanced Directive? No July 22, 2018 8:53pm Pt has a Living Will? No July 22, 2018 8:53pm Pt has a Power of Refrigeration Lead? No Julo 2017 8:53pm Chief Complaint and Reason for Visit Encounter Admit Date Chief Complaint Reason for V isit Departed Emergency July 22, 2018 8:14pm HIP INJURY Hospital Discharge Instructions Additional Discharge Instructions Initia l interpretation of your x-ray is normal. I suspect that you have a sprain of the hip. REST-with increased weight bearing and activity as tolerated. ICE packs several times a day 15-20 minutes for 2-3 days. Over the counter pain medications as directed may be helpful. No Instructions/Education Pr ovided Hospital Discharge Medications Medication Dose Units Route Sig Qty Days Order Date Status Ins tructions Trazodone 50 MG ORAL DAILY Octobe r 2017 Active Prazosin 1 MG ORAL DAILY July 22, 2018 Active Melatonin 6 MG ORAL BEDTIME Julobe r 2017 Active Escitalopram Oxalate 20 MG ORAL DAILY July 22, 2018 Active Encounters Encounter Facility Location Admit/Visit Date Discharge/Departure Date Attending Provider Departed Emergency [facility] Emergency Department July 22, 2018 8:14pm July 22, 2018 9:39pm Functional Status No known functional status. Immunizations No known immunizations. Payers Payer Name Policy Type Covered Democrat Covered Democrat Id Relationship Subscriber Subscriber Id SELF PAY [...] July 22, 2018 8:17pm Respiration 16 RPM 12-24 July 22, 2018 8:17pm Pulse Oximetry 100 % 95-100 July 22 8:17pm Blood Pressure Systolic 133 100-140 Octo jannet 2017 8:17pm Blood Pressure Diastolic 69 50-85 Oct joselyn 2017 8:17pm Body Mass Index n/a
--- OUTSIDE RECORDS SUMMARY | 2023-10-14 16:58 | XMS_ITS | Continuity of Care Document ---
Author Name [facility] Address [address] [place] [address] Organization [facility] Address [address] [place] [address] Care Team Providers Care Geophysical Computer Name Role Phone Out of Town, Provider [...] have [place] [facility] July 22, 2018 8:53pm Does patient have an Advanced Directive? No July 22, 2018 8:53pm Pt has a Living Will? No July 22, 2018 8:53pm Pt has a Power of Local Coordinator? No Julo 2017 8:53pm Chief Complaint and [...] Date Discharge/Departure Date Attending Provider Departed Emergency [facility] Emergency Department July 22, 2018 8:14pm July 22, 2018 9:39pm Functional Status No known functional status. Immunizations No known immunizations. Payers Payer Name Policy Type Covered Republican Covered Republican Id Relationship Subscriber Subscriber Id SELF PAY [...]
--- OUTSIDE RECORDS SUMMARY | 2023-10-14 16:58 | XMS_ITS | Continuity of Care Document ---
Author Name Address [address] [place] [address] Organization Address [address] [place] [address] Care Team Providers Care Hog Killer Name Role Phone Out of Town, Provider [...] encount er Inactive Procedures Procedure Date Status Hip 2 vw Min RT July 22, 2018 completed Relevant Diagnostic Tests and/or Laboratory Data No known relevant diagnostic tests, laboratory data, and/or discharge summary. Advance Directives Advance Directive Response Recorded Date/ Time Do we [place] [facility] [place] July 22, 2018 8:53pm Does patient have an Advanced Directive? No July 22, 2018 8:53pm Pt has a Living Will? No July 22, 2018 8:53pm Pt has a Power of Solder Cream Maker? No Julo 2017 8:53pm Chief Complaint and [...] Date Discharge/Departure Date Attending Provider Departed Emergency Emergency Department July 22, 2018 8:14pm July 22, 2018 9:39pm Functional Status No known functional status. Immunizations No known immunizations. Payers Payer Name Policy Type Covered Libertarian Covered Libertarian Id Relationship Subscriber Subscriber Id SELF PAY [...]
--- OUTSIDE RECORDS SUMMARY | 2023-10-14 16:58 | XMS_ITS | Continuity of Care Document ---
Author Name [facility] Address [address] [place] [id number] Organization [facility] Address [address] [place] [id number] Care Team Providers Care Reconciliation Coordinator Name Role Phone Out of Town, Provider [...] Active Problems Medical Problem Onset Date Status Subungual hematoma of digit of hand Active Inactive/Resolved Problems Medical Problem Onset Date Status Unspecified sprain of right hip, initial encount er Inactive Procedures Procedure Date Status Finger(s) 2 vw Min RT January 22, 2019 completed Ankle 3 vw Min RT November 15, 2018 completed Hip 2 vw Min RT July 22, 2018 completed Relevant Diagnostic Tests and/or Laboratory Data No known relevant diagnostic tests, laboratory data, and/or discharge summary. Chief Complaint and Reason for Visit Encounter Admit Date Chief Complaint Reason for V isit Departed Emergency January 22, 2019 7:49am finger injury Hospital Discharge Instructions Additional Discharge Instructions keeo i t covered with a bandaid to continue to wick the blood out from under the nail...when the bruised area of the nail grows out to the end of the finger, that part of the nail will not be attached to the nail bed so keep it trimmed short to avoid catching it and ripping the nail off..elevation and ice to reduce throbbing...ibuprofen or tylenol as needed for pain Instruction/Education Provided Common Fi nger Injuries (DC) Hospital Discharge Medications Medication Dose Units Route [...] Date Discharge/Departure Date Attending Provider Departed Emergency [facility] Emergency Department January 22, 2019 7:49am January 22, 2019 8:39am Departed Clinical [facility] DI Walk In [facility] November 15, 2018 12:36pm November 15, 2018 12:37pm Yaneth Perez Departed Emergency [facility] Emergency Department July 22, 2018 8:14pm July 22, 2018 9:39pm Functional Status No known functional status. Immunizations No known immunizations. Payers Payer Name Policy Type Covered Constitution Party Covered Constitution Party Id Relationship Subscriber Subscriber Id SELF PAY Personal Plan of Care Instructions Common Finger Injuries (DC) Social History No known social history. Vital Signs Vital Reading Result Reference Range Collection Date/Time Height n/a Weight 99.79 kg January 22, 2019 7 :53am Temperature 97.8 F 97.6 F-99.6 F January 22, 2019 7:53am Pulse 70 BPM 60-100 January 22, 2019 7 :53am Respiration 16 RPM 12-January 22, 2019 7 :53am Pulse Oximetry 98 % 95-100 January 22, 2019 7:53am Blood Pressure Systolic 126 100-140 Apri l 2018 7:53am Blood Pressure Diastolic 80 50-85 Apr il 2018 7:53am Body Mass Index n/a
--- NOTE | 2023-10-14 18:14 | DI.RAD_ITS ---
Exam(s) XR CHEST 2V PA LATERAL EXAM: XR CHEST 2V PA LATERAL CLINICAL HISTORY: productive cough, covid +. TECHNIQUE: 2D digital imaging was performed. COMPARISON: CR,XR XR CHEST 2V PA LATERAL from 11/22/2019 FINDINGS: 2 views: Heart size is normal. The mediastinum is not widened. Lungs are clear. No infiltrates nor pleural effusions. IMPRESSION: No acute pulmonary findings. DATA REPOSITORY: RADIATION DOSE DELIVERED:
--- NOTE | 2023-10-14 19:05 | ED.GENADUL_ITS ---
Discharge Plan Disposition Patient Disposition: Home Condition: Stable Discharge Details Clinical Impression: Viral respiratory illness Primary Care Provider: Unknown,Unknown ED Provider: Cici Flores Home Meds and New Rx's Prescriptions: Continued nystatin 100,000 unit/gram cream 1 applic topical BID Qty: 30 2RF hydroxyzine HCl 25 mg tablet 25 mg PO .COMPLEX PRN (Reason: itching) Qty: 60 3RF Rx Instructions: Take 1-2 tablets at bed time. Take 1 tablet every 6 hours as needed for headaches during the day. acetaminophen [Tylenol] 325 mg Tablet 650 mg PO Q4H PRN PRNQty: 30 0RF docusate sodium [Colace] 100 mg Capsule 100 mg PO BID PRN PRNQty: 30 0RF ibuprofen [IBU] 600 mg Tablet 600 mg PO Q6H PRN PRNQty: 30 1RF naproxen 500 mg tablet 500 mg PO DAILY PRN Patient Comments: TK 1 T PO BID PRF PAIN TAKE WITH FOOD Discharge Instructions Instructions: Viral Syndrome (ED) Additional Instructions: Can use [id number] medication as prescribed for cough fever or bodyaches. Continue to push fluids to stay well-hydrated Referrals: Unknown,Unknown [Primary Care Provider] - Medical Decision Making Female recently diagnosed with COVID concerned about RSV exposure and now reporting a 1 week history of productive cough. There is no chest pain or shortness of breath. Since she was known positive for COVID I see no reason to retest her. I think it is reasonable to obtain a chest x-ray to make sure she does not have a possible bacterial pneumonia on top of her viral illness. She is oxygenating in the high 90s on room air with stable vital signs. She has 2 children with similar viral-like illness. Her chest x-ray was obtained and shows no acute cardiopulmonary findings. She is able to eat and drink vital signs stable she is ready for discharged home to continue symptomatic treatment Medical Records Medical records reviewed: Yes I reviewed the patient's medical records. 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 TECHNIQUE: 2D digital imaging was performed. COMPARISON: CR,XR XR CHEST 2V PA LATERAL from 11/22/2019 FINDINGS: 2 views: Heart size is normal. The mediastinum is not widened. Lungs are clear. No infiltrates nor pleural effusions. IMPRESSION: No acute pulmonary findings. HPI General Mode of arrival: ambulatory . Date/Time Provider Initiated Documentation: 10/14/23 17:34 . Limitations to Documentation: no limitations . Information obtained by: patient . HPI Narrative: Patient presents for evaluation after reporting testing positive for COVID about a week ago. She reports that she has ongoing cough malaise. Denies chest pain. She states she is eating and drinking and bowels and bladder functioning. She comes concerned about exposure to RSV. She denies any wheezing or shortness of breath. Positive for nasal congestion and headache Related Data Home Medications Medication Instructions Recorded Confirmed hydroxyzine HCl 25 mg tablet 25 mg PO .COMPLEX PRN itching #60 07/07/18 12/10/20 tabs acetaminophen 325 mg tablet 650 mg (2 x 325 mg) PO Q4H PRN PRN 11/20/20 12/10/20 (Tylenol) #30 tabs docusate sodium 100 mg capsule 100 mg PO BID PRN PRN #30 caps 11/20/20 12/10/20 (Colace) ibuprofen 600 mg tablet (IBU) 600 mg PO Q6H PRN PRN #30 tabs 11/20/20 12/10/20 nystatin 100,000 unit/gram topical 1 applic topical BID #30 grams 12/03/20 12/10/20 cream naproxen 500 mg tablet 500 mg PO DAILY PRN 12/10/20 12/10/20 Previous Rx's Medication Instructions Recorded hydroxyzine HCl 25 mg tablet 25 mg PO .COMPLEX PRN itching #60 07/07/18 tabs acetaminophen 325 mg tablet 650 mg (2 x 325 mg) PO Q4H PRN PRN 11/20/20 (Tylenol) #30 tabs docusate sodium 100 mg capsule 100 mg PO BID PRN PRN #30 caps 11/20/20 (Colace) ibuprofen 600 mg tablet (IBU) 600 mg PO Q6H PRN PRN #30 tabs 11/20/20 nystatin 100,000 unit/gram topical 1 applic topical BID #30 grams 12/03/20 cream Allergies Allergy/AdvReac Type Severity Reaction Status Date / Time No Known Allergies Allergy Verified 12/10/20 07:59 General Stated Complaint: RespSymp SAGE: 4 Review of Systems All systems reviewed & are unremarkable except as noted in HPI and below PFSH All Active Problems (Updated 10/14/23 @ 19:06 by Cici Flores NP) Viral respiratory illness (Acute) Yeast dermatitis (Acute) Postoperative nausea and vomiting (Acute) Status post primary low transverse section (Acute) Hypertension affecting in third trimester (Acute) Encounter for maternal care for breech presentation in [place] (Acute) , supervision, high-risk (Acute) Influenza B (Acute) related condition in third trimester (Acute) Second hand smoke exposure (Acute 02/09/18) pt denies that she smokes tobacco. household memebers do. Marijuana use, continuous (Acute 08/11/16) Lumbar pain (Acute 02/09/18) Onset during 2017 . No relief with NSAIDs or PT. Depression with anxiety (Acute 08/11/16) Contraceptive management (Acute 02/25/15) 03/2017 Xulane patch. Satisfactory compliance. Medical History BMI 34.0-34.9,adult BMI 50.0-59.9, adult 07/07/2018 BMI= 48. 02/2019 BMI = 52. Contraceptive management (02/25/15) 03/2017 Xulane patch. Satisfactory compliance. Depression with anxiety Depression with anxiety (08/11/16) Lumbar pain (02/09/18) Onset during 2017 . No relief with NSAIDs or PT. Marijuana use, continuous (08/11/16) Migraine with aura Other social stressor Finances are tight. 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 Second hand smoke exposure (02/09/18) pt denies that she smokes tobacco. household memebers do. Yeast dermatitis Surgical History Status post primary low transverse section Family History Mother Heart disease [place] 08/31/18 from [place] Myocardial infarction Asthma Father Diabetes Alcohol abuse Neoplasm pancreatic cancer Social History Smoking/Tobacco Use Status: Former Tobacco Use Second Hand Exposure: Yes Smoking risk assessment performed?: Yes Alcohol Intake: never Drug use: Daily Substance use type: former substance user and marijuana Adopted: No Foster care: Yes (briefly 16-17) Household members: significant other, children and other Details: Deangelo LYNCH, ELIESER's mom and his 2 daughters 50% of time Housing: apartment Number of Children: 1 Communication Needs: None Education Level: other Details: GED current occupation: Employed-stopped work at [employer] secondary to back pain Pets and animals: Yes (2 CATS, 2 DOGS, 2 FERRETS, 2 LIZARDS) Pets and animals: cat(s), dog(s), ferret(s) and other What is your relationship status?: living with partner Panel score (0-1 are the most socially isolated patients): 1 Do you feel safe at home: Yes Do you feel safe in your relationship?: Yes Female Reproductive History Menstrual control method: patch History History 2 Para Hx # Term Pregnancies 1 Multiple births Hx # Pregnancies Ectopic pregnancies AB induced Hx Number of Living Children AB spontaneous Exam Narrative Exam Narrative: Obese female unkempt in no acute distress head is atraumatic oral mucosas moist eyes normal appearance noninjected nonicteric neck is supple cardiovascular regular rate and rhythm her respirations are even and unlabored breath sounds are clear throughout. Abdomen benign extremities without edema moves all extremities skin with no rashes or lesions Course Vital Signs Vital signs: Vital Signs Temperature 36.7 C 10/14/23 16:47 Pulse 86 10/14/23 16:47 Respiratory Rate 16 10/14/23 16:47 Blood Pressure 147/92 H 10/14/23 16:47 Pulse Oximetry 96 10/14/23 16:47 Temperature 36.7 C 10/14/23 16:47 Temperature Source Temporal Artery Scan 10/14/23 16:47 Pulse 86 10/14/23 16:47 Respiratory Rate 16 10/14/23 16:47 Respiratory Effort Normal, Non-Labored 10/14/23 17:08 Blood Pressure 147/92 H 10/14/23 16:47 Blood Pressure Position Sitting 10/14/23 16:47 Pulse Oximetry 96 10/14/23 16:47 Oxygen Delivery Method Room Air 10/14/23 16:47 Oxygen Flow Rate 0 10/14/23 16:47 Pain Level 0 10/14/23 16:47
== END 2023-10-14 19:17 | disposition home or self-care (01) ==
PROVIDERS: Emergency Provider Nurse Practitioner Acute Care
DX: R05.1 Acute cough (principal); B97.89 Other viral agents as the cause of diseases classified elsewhere; Z86.16 Personal history of COVID-19
CPT/HCPCS: 99283; 71046

== ENCOUNTER 2023-10-31 13:43 | Emergency (ER) | payer MEDICAID, SELFPAY ==
[2023-10-31 13:49] VITALS: BP 132/80; PULSE 81; RESP 18; TEMP 36.8; O2SAT 98
--- NOTE | 2023-10-31 14:30 | DI.RAD_ITS ---
Exam(s) XR ELBOW RT COMPLETE EXAM: XR ELBOW RT COMPLETE CLINICAL HISTORY: right elbow pain s/p fall. TECHNIQUE: 2D digital imaging was performed. COMPARISON: No exams were available for comparison FINDINGS: 3 views No evidence of acute fracture nor elbow joint effusion. There is no swelling of the olecranon bursa. There is subcutaneous edema in the proximal dorsal forearm. Radial head and neck appear unremarkab le. IMPRESSION: Soft tissue findings as above but no fractures and no elbow joint effusion. DATA REPOSITORY: RADIATION DOSE DELIVERED:
--- NOTE | 2023-10-31 14:36 | W.ED.GENAD ---
HPI General Stated Complaint: Orthopedic Mode of arrival: ambulatory. SAGE: 4 Date/Time Provider Initiated Documentation: 10/31/23 13:56. Limitations to Documentation: no limitations. Information obtained by: patient. History of Present Illness right elbow pain moderate aching reports no radiation week(s) (1) constant Rest improves symptom(s), No exacerbating factors reported and Movement worsens symptoms no other symptoms. none Related Data Home Medications Medication Instructions Recorded Confirmed hydroxyzine HCl 25 mg tablet 25 mg PO .COMPLEX PRN itching #60 07/07/18 10/31/23 tabs acetaminophen 325 mg tablet 650 mg (2 x 325 mg) PO Q4H PRN PRN 11/20/20 10/31/23 (Tylenol) #30 tabs docusate sodium 100 mg capsule 100 mg PO BID PRN PRN #30 caps 11/20/20 10/31/23 (Colace) ibuprofen 600 mg tablet (IBU) 600 mg PO Q6H PRN PRN #30 tabs 11/20/20 10/31/23 nystatin 100,000 unit/gram topical 1 applic topical BID #30 grams 12/03/20 10/31/23 cream naproxen 500 mg tablet 500 mg PO DAILY PRN 12/10/20 10/31/23 Previous Rx's Medication Instructions Recorded hydroxyzine HCl 25 mg tablet 25 mg PO .COMPLEX PRN itching #60 07/07/18 tabs acetaminophen 325 mg tablet 650 mg (2 x 325 mg) PO Q4H PRN PRN 11/20/20 (Tylenol) #30 tabs docusate sodium 100 mg capsule 100 mg PO BID PRN PRN #30 caps 11/20/20 (Colace) ibuprofen 600 mg tablet (IBU) 600 mg PO Q6H PRN PRN #30 tabs 11/20/20 nystatin 100,000 unit/gram topical 1 applic topical BID #30 grams 12/03/20 cream Allergies Allergy/AdvReac Type Severity Reaction Status Date / Time No Known Allergies Allergy Verified 10/31/23 13:53 Review of Systems All systems reviewed & are unremarkable except as noted in HPI and below Constitutional Constitutional: Denies chills, Denies fever(s) and Denies weakness Cardiovascular Cardiovascular: Denies chest pain and Denies dyspnea Respiratory Respiratory: Denies cough and Denies dyspnea Gastrointestinal Gastrointestinal: Denies abdominal pain, Denies nausea and Denies vomiting Musculoskeletal Musculoskeletal: Denies joint swelling Neurologic Neurologic: Denies weakness Psychiatric Psychiatric: Denies depression Endocrine Endocrine: Denies cold intolerance and Denies heat intolerance PFSH All Active Problems (Updated 10/31/23 @ 15:36 by Lauro Og MD) Contusion of elbow, right (Acute) Viral respiratory illness (Acute) Yeast dermatitis (Acute) Postoperative nausea and vomiting (Acute) Status post primary low transverse section (Acute) Hypertension affecting in third trimester (Acute) Encounter for maternal care for breech presentation in [place] (Acute) , supervision, high-risk (Acute) Influenza B (Acute) related condition in third trimester (Acute) Second hand smoke exposure (Acute 02/09/18) pt denies that she smokes tobacco. household memebers do. Marijuana use, continuous (Acute 08/11/16) Lumbar pain (Acute 02/09/18) Onset during 2017 . No relief with NSAIDs or PT. Depression with anxiety (Acute 08/11/16) Contraceptive management (Acute 02/25/15) 03/2017 Xulane patch. Satisfactory compliance. Medical History BMI 34.0-34.9,adult BMI 50.0-59.9, adult 07/07/2018 BMI= 48. 02/2019 BMI = 52. Contraceptive management (02/25/15) 03/2017 Xulane patch. Satisfactory compliance. Depression with anxiety Depression with anxiety (08/11/16) Lumbar pain (02/09/18) Onset during 2017 . No relief with NSAIDs or PT. Marijuana use, continuous (08/11/16) Migraine with aura Other social stressor Finances are tight. 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 Second hand smoke exposure (02/09/18) pt denies that she smokes tobacco. household memebers do. Yeast dermatitis Surgical History Status post primary low transverse section Family History Mother Heart disease [place] 08/31/18 [place] Myocardial infarction Asthma Father Diabetes Alcohol abuse Neoplasm pancreatic cancer Social History Smoking/Tobacco Use Status: Former Tobacco Use Second Hand Exposure: Yes Smoking risk assessment performed?: Yes Alcohol Intake: never Drug use: Daily Substance use type: former substance user and marijuana Adopted: No Foster care: Yes (briefly 16-17) Household members: significant other, children and other Details: ELIESER SERRA, Deangelo Hernandez, ELIESER's mom and his 2 daughters 50% of time Housing: apartment Number of Children: 1 Communication Needs: None Education Level: other Details: GED current occupation: Employed-stopped work at [employer] secondary to back pain Pets and animals: Yes (2 CATS, 2 DOGS, 2 FERRETS, 2 LIZARDS) Pets and animals: cat(s), dog(s), ferret(s) and other What is your relationship status?: living with partner Panel score (0-1 are the most socially isolated patients): 1 Do you feel safe at home: Yes Do you feel safe in your relationship?: Yes Female Reproductive History Menstrual control method: patch History History 2 Para Hx # Term Pregnancies 1 Multiple births Hx # Pregnancies Ectopic pregnancies AB induced Hx Number of Living Children AB spontaneous Exam Const General: no acute distress Orientation: alert HENMT Head: normal to inspection Ears: external ears normal General nose exam: external nose normal Mouth: moist mucous membranes Eyes General: appearance normal, both eyes and all related structures Neck Neck: normal visual inspection Resp Effort & Inspection: normal respiratory effort and able to speak in complete sentences Cardio Rate: regular rate Skin General skin exam: no rashes or lesions noted Neuro General: patient alert and patient oriented x3 Extrem General: normal to inspection, full ROM and capillary refill normal Psych Mental Status: mental status grossly normal Course Vital Signs Vital signs: Vital Signs Temperature 36.8 C 10/31/23 13:49 Pulse 81 10/31/23 13:49 Respiratory Rate 18 10/31/23 13:49 Blood Pressure 132/80 10/31/23 13:49 Pulse Oximetry 98 10/31/23 13:49 Temperature 36.8 C 10/31/23 13:49 Temperature Source Oral 10/31/23 13:49 Pulse 81 10/31/23 13:49 Respiratory Rate 18 10/31/23 13:49 Respiratory Effort Normal, Non-Labored 10/31/23 13:54 Blood Pressure 132/80 10/31/23 13:49 Blood Pressure Position Sitting 10/31/23 13:49 Pulse Oximetry 98 10/31/23 13:49 Oxygen Delivery Method Room Air 10/31/23 13:49 Oxygen Flow Rate 0 10/31/23 13:49 Pain Level 7 10/31/23 14:30 Medical Decision Making 23 yo female comes in with right elbow pain. She says a week ago she was walking down some outdoor steps that were icy and she slipped and landed on her right elbow. She denies head trauma or loc. HAs had pain in the olecranon since so came here. Denies fevers, chills, no chest pain, head pain, neck pain, back pain or chest pain. She has full rom of the shoulder, elbow and wrist, no tenderness other then on the olecranon where there is no visible or palpable deformity, intact distal senation and pulses. No swelling or redness of the yellow. Suspect contusion but will xray the elbow to eval for fracture xray negative, patient stable, suspect elbow contusion, will have her f/u with pcp if not improving in a week, return precautions given Differential Diagnosis Differential Diagnosis: fracture, contusion, sprain Quality:SDOH Health Related Social Needs: No Data to Display Discharge Plan Disposition Patient Disposition: Home Condition: Stable Discharge Details Clinical Impression: Contusion of elbow, right Primary Care Provider: None,None ED Provider: Lauro Og Home Meds and New Rx's Prescriptions: Continued nystatin 100,000 unit/gram cream 1 applic topical BID Qty: 30 2RF hydroxyzine HCl 25 mg tablet 25 mg PO .COMPLEX PRN (Reason: itching) Qty: 60 3RF Rx Instructions: Take 1-2 tablets at bed time. Take 1 tablet every 6 hours as needed for headaches during the day. acetaminophen [Tylenol] 325 mg Tablet 650 mg PO Q4H PRN PRNQty: 30 0RF docusate sodium [Colace] 100 mg Capsule 100 mg PO BID PRN PRNQty: 30 0RF ibuprofen [IBU] 600 mg Tablet 600 mg PO Q6H PRN PRNQty: 30 1RF naproxen 500 mg tablet 500 mg PO DAILY PRN Patient Comments: TK 1 T PO BID PRF PAIN TAKE WITH FOOD Discharge Instructions Instructions: Contusion in Adults (ED) Additional Instructions: your xray did not show concerning findings if no improvement in a week follow up with your primary care provider or urgent/express care if you feel more ill or have severe worsening pain return to the emergency department
[2023-10-31] MEDS: Naproxen 500 MG TAB PO (14:57)
--- NOTE | 2023-10-31 15:29 | DI.VRAD_ITS ---
PROCEDURE INFORMATION: Exam: XR Right Elbow Exam date and time: 10/31/2023 3:06 PM Age: 23 years old Clinical indication: Patient HX: Right elbow pain S/P fall; Per PT: Tingling down forearm into hand TECHNIQUE: Imaging protocol: Radiologic exam of the right elbow. Views: 3 or more views. COMPARISON: No relevant prior studies available. FINDINGS: Bones/joints: There is no evidence of acute fracture.There is no evidence of malalignment or dislocation. Soft tissues: Normal. IMPRESSION: There is no evidence of acute fracture.There is no evidence of malalignment or dislocation. Dictated and Authenticated by: Catalina Parr MD. Ordering:RICARDA Restrepo MD
== END 2023-10-31 15:59 | disposition home or self-care (01) ==
PROVIDERS: Emergency Provider Emergency Medicine
DX: S50.01XA Contusion of right elbow, initial encounter (principal); W00.1XXA Fall from stairs and steps due to ice and snow, initial encounter; Y93.01 Activity, walking, marching and hiking; Y93.89 Activity, other specified
CPT/HCPCS: 99283; 73080

== ENCOUNTER 2023-12-10 09:25 | Outpatient (CLI) | payer MEDICAID, SELFPAY ==
[2023-12-10 12:31] LABS: ALT 23 U/L (14-59); AST 18 U/L (15-37); Albumin 3.4 g/dL (3.4-5.0); Alkaline Phosphatase 92 U/L (46-116); Anion Gap 8.3 mmol/L (3-11); BUN 11 mg/dL (7-18); Bilirubin, Total 0.5 mg/dL (0.2-1.0); CO2 29.7 mmol/L (21.0-32.0); CREATININE 0.8 mg/dL (0.55-1.02); Calcium 9.3 mg/dL (8.5-10.1); Calculated LDL 91 mg/dL (<100); Chloride 105 mmol/L (98-107); Cholesterol 143 mg/dL (<200); Glucose 103 mg/dL (74-106); HDL Cholesterol 35 mg/dL (40-60); Potassium 4.5 mmol/L (3.5-5.1); Sodium 143 mmol/L (136-145); Total Protein 6.7 g/dL (6.4-8.2); Triglyceride 87 mg/dL (<150)
[2023-12-10 19:08] LABS: HIV-1/2 Ag & Ab Screen Negative (Negative)
[2023-12-10 19:13] LABS: Hepatitis C Ab w Rflx HCV PCR Negative (Negative)
== END 2023-12-10 09:26 | disposition home or self-care (01) ==
LOC: LOS 09:25
PROVIDERS: PCP Nurse Practitioner Family; Visit Provider Nurse Practitioner Family
DX: Z11.4 Encounter for screening for human immunodeficiency virus [HIV] (principal); Z13.220 Encounter for screening for lipoid disorders; Z11.59 Encounter for screening for other viral diseases
CPT/HCPCS: 36415; 80053; 80061; 86803; 87389

== ENCOUNTER 2024-03-09 13:12 | Outpatient (REF) | payer MEDICAID, SELFPAY ==
--- NOTE | 2024-03-09 11:45 | PAPFT_PTH ---
PATIENT: Pat Montgomery LOC: [facility] U#:[id number] AGE/SX: 24/F ROOM: RE03/09/[address]: Evens Gamez DNP : 2000 BED: DIS: 03/09/2024 SPEC #: [id number] RECD: 03/10/24 13:34 STATUS: DAVID REQ #: [id number] AKIL: 03/09/24 11:[address]: Evens Hernandez DEPT: [facility] Cytology RECD BY: Evangelina Dover Tissues: 1 - CX/ENDOCX FOR PAP SMEARS Procedures: PAP THIN PREP/UVM Screening Comments: [id number]
== END 2024-03-09 13:13 | disposition home or self-care (01) ==
LOC: LBN 13:12
PROVIDERS: PCP Nurse Practitioner Family; Visit Provider Nurse Practitioner Family
DX: Z12.4 Encounter for screening for malignant neoplasm of cervix (principal)
CPT/HCPCS: 88142

== ENCOUNTER → 2024-04-11 01:56 | Outpatient (CLI) | payer MEDICAID, SELFPAY ==
--- NOTE | 2024-04-11 07:45 | DI.US_ITS ---
Exam(s) MG MAMMO DIAGNOSTIC BI US BREAST LT LIMITED EXAM: MG MAMMO DIAGNOSTIC BI CLINICAL HISTORY: breast lump, LT BREAST 1000. COMPARISON: No exams were available for comparison baseline examination. TECHNIQUE: Craniocaudal and mediolateral oblique Full Field Digital Mammography views of both breast s with Computer Aided Diagnosis followed by Tomosynthesis and left breast ultrasound. FINDINGS: Mammography/Tomosynthesis: Masses/Architectural Distortion: None seen. Microcalcifications: No suspicious pleomorphic-type are seen. Skin Thickening/Nipple Retraction: None. Left breast US: Echotexture: Normal appearance of the glandular tissue. Shadowing: No suspicious foci. Cyst: None. Solid lesions: None seen. Ductal dilation: None. IMPRESSION: 1. No evidence of malignancy is noted. 2. Unless there is more urgent need, follow-up screening mammography is recommended, as per [place] [employer] guidelines. BI-RADS Category 1 - Negative Breast Density - Category A - Almost entirely fatty Breast density category C or D implies that the patient has dense breast tissue. Dense breast tissue is very common and is not abnormal but dense breast tissue can make it harder to find cancer on a ma mmogram. Also, dense breast tissue may increase their breast cancer risk. This information about the result of the mammogram report was provided to the patient to raise their awareness. Use this report when you speak with the patient about their risks for breast cancer, which includes their family hist ory. At that time, you may recommend for more screening tests (Ultrasound or MRI) as they might be us eful based on their risk. A negative radiographic report should not delay biopsy if a dominant or clinically suspicious mass is present. Up to ten percent of cancers are not identified on mammography. A negative report may reinforce clinical impression. Adenosis and dense breasts may obscure an underlying neoplasm. False positive reports average 6 to 10%. Patient will receive a letter notifying them of these results.
== END ==
PROVIDERS: PCP Nurse Practitioner Family; Visit Provider Nurse Practitioner Family
DX: N63.20 Unspecified lump in the left breast, unspecified quadrant (principal)
CPT/HCPCS: 76642; 77062; 77066; G0279

== ENCOUNTER 2024-07-20 13:33 | Emergency (ER) | payer MEDICAID, SELFPAY ==
[2024-07-20] VITALS (10 sets, daily range): BP systolic 117–130; BP diastolic 65–74; PULSE 77–111; RESP 14–22; O2SAT 95–100
--- NOTE | 2024-07-20 13:30 | RT.EKG_ITS ---
APPROVED REPORT Exam: Resting ECG Reason for Exam: chest pain Patient Location: E HR:89 bpm ECG Measurements Heart Rate 89 AXIS DE 122 P 72 QRSd 81 QRS 99 QT 359 T 14 QTc 438 Conclusion Sinus rhythm...normal P axis, V-rate 60- 99
--- NOTE | 2024-07-20 13:45 | DI.RAD_ITS ---
Exam(s) XR PORTABLE CHEST AP EXAM: XR PORTABLE CHEST AP CLINICAL HISTORY: cough, dyspnea TECHNIQUE: 2D digital imaging was performed of the chest. Two images were obtained. AP views were obtained. COMPARISON: CR XR CHEST 2V PA LATERAL from 10/14/2023 FINDINGS: MEDIASTINUM: Normal. HEART: Normal. PULMONARY VASCULATURE: Normal. LUNGS: Clear. PLEURAL SPACE: No pleural effusion or pneumothorax. BONE:Within normal limits for the patient's age. OTHER FINDINGS:Normal. IMPRESSION: No acute pulmonary findings. DATA REPOSITORY: RADIATION DOSE DELIVERED:
--- NOTE | 2024-07-20 13:55 | ED.GENADUL_ITS ---
Discharge Plan Disposition Patient Disposition: Home Condition: Stable Discharge Details Clinical Impression: URI (upper respiratory infection), Shortness of breath Primary Care Provider: Evens Hernandez ED Provider: Lauro Og Home Meds and New Rx's Prescriptions: New prednisone 20 mg tablet 60 mg PO DAILY 4 Days Qty: 12 0RF Continued naproxen 500 mg tablet 500 mg PO DAILY PRN (Reason: migraine) Qty: 90 0RF rizatriptan [Maxalt-SECURITIES SETTLEMENT PROCESSOR] 10 mg tablet,disintegrating 10 mg PO ONCE PRN (Reason: migraine headache) Qty: 10 0RF Rx Instructions: may repeat once after at least 2 hours acetaminophen [Tylenol] 325 mg Tablet 650 mg PO Q4H PRN PRNQty: 30 0RF ibuprofen [IBU] 600 mg Tablet 600 mg PO Q6H PRN PRNQty: 30 1RF Discharge Instructions Additional Instructions: He would likely have a viral illness. Use the inhaler as needed 2 puffs every 2-4 hours. If not better within a week follow-up with your primary care provider Return to the emergency department if you feel more ill or have severe worsening shortness of breath. HPI General Mode of arrival: ambulatory . Date/Time Provider Initiated Documentation: 07/20/24 13:40 . Limitations to Documentation: no limitations . Information obtained by: patient . History of Present Illness 24 year old F presents to the emergency department with the chief complaint of cough, dyspnea, described as moderate, Quality is described as aching, Patient started experiencing this day(s) (2) and it has been constant. No relieving factors improve symptom(s), No exacerbating factors reported . Patient notes shortness of breath; denies fever/chills. Patient did receive the following treatments prior to arrival, none Related Data Home Medications ?Medication ?Instructions ?Recorded ?Confirmed acetaminophen 325 mg tablet 650 mg (2 x 325 mg) PO Q4H PRN PRN 11/20/20 07/20/24 (Tylenol) #30 tabs ibuprofen 600 mg tablet (IBU) 600 mg PO Q6H PRN PRN #30 tabs 11/20/20 07/20/24 naproxen 500 mg tablet 500 mg PO DAILY PRN migraine #90 12/10/23 07/20/24 tabs rizatriptan 10 mg disintegrating 10 mg PO ONCE PRN migraine 03/17/24 07/20/24 tablet (Maxalt-SECURITIES SETTLEMENT PROCESSOR) headache #10 tabs prednisone 20 mg tablet 60 mg (3 x 20 mg) PO DAILY 4 days 07/20/24 #12 tabs Previous Rx's ?Medication ?Instructions ?Recorded acetaminophen 325 mg tablet 650 mg (2 x 325 mg) PO Q4H PRN PRN 11/20/20 (Tylenol) #30 tabs ibuprofen 600 mg tablet (IBU) 600 mg PO Q6H PRN PRN #30 tabs 11/20/20 naproxen 500 mg tablet 500 mg PO DAILY PRN migraine #90 12/10/23 tabs rizatriptan 10 mg disintegrating 10 mg PO ONCE PRN migraine 03/17/24 tablet (Maxalt-SECURITIES SETTLEMENT PROCESSOR) headache #10 tabs prednisone 20 mg tablet 60 mg (3 x 20 mg) PO DAILY 4 days 07/20/24 #12 tabs Allergies Allergy/AdvReac Type Severity Reaction Status Date / Time No Known Allergies Allergy Verified 03/09/24 11:33 General Stated Complaint: Chest Pain SAGE: 3 Review of Systems All systems reviewed & are unremarkable except as noted in HPI and below Constitutional Constitutional: Denies chills and Denies fever(s) Cardiovascular Cardiovascular: Reports chest pain and Reports dyspnea Respiratory Respiratory: Reports cough and Reports dyspnea Gastrointestinal Gastrointestinal: Denies abdominal pain, Denies nausea and Denies vomiting Integumentary/Breasts Skin/Breast: Denies rash Exam Const General: no acute distress Orientation: alert HENVA Head: normal to inspection Ears: external ears normal General nose exam: external nose normal Mouth: moist mucous membranes Eyes General: appearance normal, both eyes and all related structures Neck Neck: normal visual inspection Resp Effort & Inspection: normal respiratory effort and able to speak in complete sentences Auscultation: wheezes Cardio Jugular venous pressure: no JVD Rate: regular rate Heart Sounds: no murmurs Skin General skin exam: no rashes or lesions noted Neuro General: patient alert and patient oriented x3 Extrem General: normal to inspection Psych Mental Status: mental status grossly normal Course Vital Signs Vital signs: Vital Signs Pulse 92 H 07/20/24 13:35 Respiratory Rate 18 07/20/24 13:35 Blood Pressure 117/71 07/20/24 13:35 Pulse Oximetry 96 07/20/24 13:35 Temperature Source Oral 07/20/24 13:35 Pulse 92 H 07/20/24 13:35 Respiratory Rate 18 07/20/24 13:35 Blood Pressure 117/71 07/20/24 13:35 Blood Pressure Position Sitting 07/20/24 13:35 Pulse Oximetry 96 07/20/24 13:35 Oxygen Delivery Method Room Air 07/20/24 13:35 Oxygen Flow Rate 0 07/20/24 13:35 Lab/Test Results Lab/Test Results: Laboratory Tests Range/Units 07/20/24 13:48 COVID-19 Source Cancelled SARS-CoV-2 (PCR) Cancelled Medical Decision Making 24-year-old female with a history of sleep apnea and obesity comes in with chief complaint of 2 days of shortness of breath and cough and when she does cough she has anterior chest pain. She denies any fevers, vomiting. She speaking full sentences on exam with stable vital signs. She does have diffuse wheezing bilaterally, denies any history of asthma. Suspect she has a URI, will check a Fluvid, CBC CMP and given her reported chest pain even though it sounds musculoskeletal check troponin. She is not hypoxic or tachycardic, Wells low and PERC negative so doubt PE. No tearing back pain and equal peripheral pulses so doubt dissection. Will treat her symptoms with a DuoNeb and Solu-Medrol and reassess. Patient feels much better after 2 updrafts and methylprednisolone, chest x-ray COVID and flu and lab work all unremarkable. Lungs now clear. Will provide her with an albuterol inhaler to use as needed and short course of prednisone. Suspect she has a URI with some reactive airway disease, advised follow-up with her PCP if not improving and return precautions given Differential Diagnosis Differential Diagnosis: uri, covid, flu, pneumonia Lab Data Lab results reviewed: Yes I reviewed the patient's lab results. ECG Data Attestation: I personally reviewed and interpreted this ECG (s) as follows: Prior ECG tracings: not available for review Interpretation: Sinus rhythm, rate of 89, IN 122, no STEMI Quality:SDOH Health Related Social Needs: Health related social needs inadequate housing, food i nsecurity, personal safety Health related social needs details N/A PFSH All Active Problems (Updated 07/20/24 @ 15:21 by Lauro Og MD) Shortness of breath (Acute) URI (upper respiratory infection) (Acute) Moderate obstructive sleep apnea (Acute) Heavy menses (Acute) Breast lump (Acute) scattered, throughout breasts Heel pain, bilateral (Acute) Pain in scar (Acute) Medial epicondyle apophysitis of right elbow due to overuse (Acute) Depression with anxiety (Acute) BMI 50.0-59.9, adult (Acute) 07/07/2018 BMI= 48. 02/2019 BMI = 52. Medical History (Updated 07/20/24 @ 15:21 by Lauro Og MD) Yeast dermatitis Hypertension affecting in third trimester , supervision, high-risk Influenza B Lumbar pain (02/09/18) Onset during 2017 . No relief with NSAIDs or PT. Other social stressor Finances are tight. 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 BMI 34.0-34.9,adult Surgical History Status post primary low transverse section Family History Mother Heart disease [place]. 08/31/18 from [place] Myocardial infarction Asthma Father Diabetes Alcohol abuse Neoplasm pancreatic cancer Sister No problems noted. 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 Pets and animals: Yes (2 CATS, 2 DOGS, 2 FERRETS, 2 LIZARDS) Pets and animals: cat(s), dog(s), ferret(s) and other Sexually active: Yes Do you think of yourself as: straight/heterosexual Current gender identity: female How often do you talk on the phone with friends or family?: once per week How often do you get together with friends or relatives?: never How often do you attend zoroastrian or zoroastrianism services?: decline to answer Do you belong to any clubs or organized social groups?: no Panel score (0-1 are the most socially isolated patients): 0 What type of physical activity do you participate in: none Special david needs: No Seatbelt use: always Helmet use: Yes Helmet use: always Drive intox or ride w/intox route delivery service driver: No Fire extinguisher in home: No Firearms in home: No In current or past relationships, have you been: made to feel afraid Do you feel safe at home: Yes Victim of physical abuse: No Victim of emotional abuse: Yes Victim of sexual abuse: No Would you like helpful sources: No Female Reproductive History Menstrual control method: patch History History 4 Para Hx # Term Pregnancies 2 Multiple births Hx # Pregnancies Ectopic pregnancies AB induced Hx Number of Living Children 2 AB spontaneous
[2024-07-20 13:56] LABS: Abs Immature Grans 0.03 10^3/uL (0.0-0.06); Absolute Basophil Count 0.04 10^3/uL (0.0-0.2); Absolute Eosinophil Count 0.23 10^3/uL (0.0-0.7); Absolute Lymphocyte Count 1.75 10^3/uL (1.2-3.4); Absolute Monocyte Count 0.59 10^3/uL (0.1-0.8); Absolute Neutrophil Count 4.46 10^3/uL (1.2-6.7); Basophils % 0.6 %; Eosinophils % 3.2 %; HGB 14.7 g/dL (11.2-15.7); Immature Grans % 0.4 %; Lymphocytes % 24.6 %; MCV 84 fL (80-95); MPV 9.8 fL (8.0-11.0); Monocytes % 8.3 %; Neutrophils % 62.9 %; Platelet Count 268 10^3/uL (130-400); RBC 5.45 10^6/uL (3.93-5.22); RDW 13.2 % (11.7-14.6); RDW-SD 40.5 fL
[2024-07-20] MEDS: methylPREDNISolone SUCC 125 MG VIAL IVP (14:12)
[2024-07-20] MEDS: Albuterol/Ipratropium 3 ML UPD VIAL UPD ×2 (14:12→15:17)
[2024-07-20 14:14] LABS: ALT 24 U/L (14-59); AST 22 U/L (15-37); Albumin 3.3 g/dL (3.4-5.0); Alkaline Phosphatase 92 U/L (46-116); Anion Gap 6.3 mmol/L (3-11); BUN 10 mg/dL (7-18); Bilirubin, Total 0.57 mg/dL (0.2-1.0); CO2 28.7 mmol/L (21.0-32.0); CREATININE 0.9 mg/dL (0.55-1.02); Calcium 9.1 mg/dL (8.5-10.1); Chloride 100 mmol/L (98-107); Estimated GFR 90.42 (mL/min/1.73m2); Glucose 87 mg/dL (74-106); Lipase 19 U/L (16-77); Magnesium 1.9 mg/dL (1.8-2.4); Sodium 135 mmol/L (136-145); Total Protein 7.6 g/dL (6.4-8.2)
[2024-07-20 14:18] LABS: Troponin I < 4 ng/L (<or=51)
[2024-07-20 14:35] LABS: HCG Qual (Serum) Negative
[2024-07-20 14:38] LABS: COVID-19 PCR Negative (Negative); Influenza A PCR Negative (Negative); Influenza B PCR Negative (Negative); RSV PCR Negative (Negative)
[2024-07-20 14:40] LABS: Source Nasopharynx
[2024-07-20] MEDS: Albuterol HFA 8 GM 60 PUFF INH IH (16:11)
== END 2024-07-20 16:23 | disposition home or self-care (01) ==
PROVIDERS: Emergency Provider Emergency Medicine; PCP Nurse Practitioner Family
DX: J06.9 Acute upper respiratory infection, unspecified (principal); R07.9 Chest pain, unspecified
CPT/HCPCS: 80053; 81025; 83690; 87635; 87637; 87880; 93005; 96374; 99285; 71045; 83735; 84484; 84703; 85025; 93010; 99284; J2919; J7620

== ENCOUNTER 2024-10-04 03:25 | Outpatient (CLI) | payer MEDICAID, SELFPAY ==
--- NOTE | 2024-10-04 14:38 | DI.RAD_ITS ---
Exam(s) XR FOOT LT COMPLETE EXAM: XR FOOT LT COMPLETE CLINICAL HISTORY: LEFT FOOT PAIN,m79.672. TECHNIQUE: 2D digital imaging was performed. COMPARISON: No exams were available for comparison FINDINGS: 3 views No evidence of acute fracture or diastasis of the Lisfranc joint. Great toe metatarsophalangeal join t appears unremarkable. Bone density normal. No osseous lesions. No pes planus. Inferior calcanea l spur noted. No calcification in the plantar fascia. IMPRESSION: No acute osseous findings in the foot. DATA REPOSITORY: RADIATION DOSE DELIVERED:
--- NOTE | 2024-10-04 14:38 | DI.RAD_ITS ---
Exam(s) XR FOOT RT COMPLETE EXAM: XR FOOT RT COMPLETE CLINICAL HISTORY: RIGHT FOOT PAIN,m79.671. TECHNIQUE: 2D digital imaging was performed. COMPARISON: CR XR FOOT LT COMPLETE from 10/04/2024 FINDINGS: 3 views No evidence of fracture or diastasis of the Lisfranc joint. Bone density normal. No osseous lesions nor erosions. Great toe metatarsophalangeal joint appears unremarkable. There is no pes planus.h s mall inferior calcaneal spur noted. Tiny adjacent calcification noted in the plantar fascial measuri ng less than 1 mm no osseous tarsal coalition evident. IMPRESSION: No acute osseous findings in the right foot. Tiny sub mm calcification noted in the plantar fascia. DATA REPOSITORY: RADIATION DOSE DELIVERED:
== END 2024-10-04 03:45 ==
LOC: DI 03:25
PROVIDERS: PCP Nurse Practitioner Family; Visit Provider Podiatrist
DX: M79.672 Pain in left foot (principal); M79.671 Pain in right foot
CPT/HCPCS: 73630

== ENCOUNTER 2025-01-13 19:01 | Emergency (ER) | payer MEDICAID, SELFPAY ==
[2025-01-13 19:10] VITALS: BP 107/74; PULSE 84; RESP 16; TEMP 36.7; O2SAT 95
--- NOTE | 2025-01-13 19:31 | ED.GENADUL_ITS ---
Discharge Plan Disposition Patient Disposition: Home Discharge Details Clinical Impression: Impacted cerumen of both ears Primary Care Provider: Evens Hernandez ED Provider: Nilsa Buck Home Meds and New Rx's Prescriptions: No Action albuterol sulfate 90 mcg/actuation HFA aerosol inhaler 2 inh inhalation Q6H PRN (Reason: shortness of breath or wheezing) Qty: 18 4RF naproxen 500 mg tablet 500 mg PO DAILY PRN (Reason: migraine) Qty: 90 0RF rizatriptan [Maxalt-COIN PURSE FRAMER] 10 mg tablet,disintegrating 10 mg PO ONCE PRN (Reason: migraine headache) Qty: 10 0RF Rx Instructions: may repeat once after at least 2 hours acetaminophen [Tylenol] 325 mg Tablet 650 mg PO Q4H PRN PRNQty: 30 0RF Discharge Instructions Instructions: Ear wax impaction Additional Instructions: Please call your primary care provider next week to schedule a follow-up appointment if you continue to have ear discomfort. I recommend discussing ways to prevent cerumen impaction in the future, including regular use of Debrox drops. Return to emergency care if you develop new severe ear pain, drainage from your ears, fever/chills associated with ear pain, or if you are very worried and need to be rechecked again immediately. Referrals: Evens Hernandez, SECURITY FIELD SUPERVISOR [Primary Care Provider] - [facility] General Date/Time Provider Initiated Documentation: 01/13/25 19:06 . HPI Narrative: Celena is a 24 year old female who presents to the emergency department today for evaluation of tinnitus to R ear, described as a high pitched ringing. She reports this has been ongoing for 2 weeks, she has attempted to use eardrops and Q-tips without improvement of symptoms. She denies recent illness. Says that this feels similar to when she has needed to have her ears cleaned out previously. She did have some clear drainage early on in course, but none recently. Denies recent trauma, history of ear surgeries, or immunocompromise. Denies significant relevant past medical history. Physical exam remarkable for bilateral cerumen impaction. No protrusion of ear, pain with manipulation of pinna, or erythema of ear. No drainage noted in ear canal. Patient is alert and oriented, no acute distress. History and presentation consistent with uncomplicated bilateral [place] impaction. After irrigation performed, patient had full resolution of symptoms. TMs pearly lees, translucent. No concern for acute infectious process or cranial nerve involvement. Reviewed discharge instructions with patient, including symptomatic management, use of Debrox at home, and red flags indicating need for return to emergency care Related Data Home Medications ?Medication ?Instructions ?Recorded ?Confirmed acetaminophen 325 mg tablet 650 mg (2 x 325 mg) PO Q4H PRN PRN 11/20/20 01/13/25 (Tylenol) #30 tabs naproxen 500 mg tablet 500 mg PO DAILY PRN migraine #90 12/10/23 01/13/25 tabs rizatriptan 10 mg disintegrating 10 mg PO ONCE PRN migraine 03/17/24 01/13/25 tablet (Maxalt-COIN PURSE FRAMER) headache #10 tabs albuterol sulfate 90 mcg/actuation 2 inh inhalation Q6H PRN shortness 07/26/24 01/13/25 aerosol inhaler of breath or wheezing #18 grams Previous Rx's ?Medication ?Instructions ?Recorded acetaminophen 325 mg tablet 650 mg (2 x 325 mg) PO Q4H PRN PRN 11/20/20 (Tylenol) #30 tabs naproxen 500 mg tablet 500 mg PO DAILY PRN migraine #90 12/10/23 tabs rizatriptan 10 mg disintegrating 10 mg PO ONCE PRN migraine 03/17/24 tablet (Maxalt-COIN PURSE FRAMER) headache #10 tabs albuterol sulfate 90 mcg/actuation 2 inh inhalation Q6H PRN shortness 07/26/24 aerosol inhaler of breath or wheezing #18 grams Allergies Allergy/AdvReac Type Severity Reaction Status Date / Time No Known Allergies Allergy Verified 01/13/25 19:10 General Stated Complaint: EarProblem SAGE: 4 Review of Systems Narrative: see hpi Exam Const General: cooperative, healthy appearing, comfortable, no acute distress and well developed Nutritional Appearance: overweight Orientation: alert and oriented x3 HENMT Head: normal to inspection Ears: hearing grossly normal bilaterally, TM's normal bilaterally (After cerumen impaction cleared), mastoids normal, no periauricular adenopathy and EAC abnormal cerumen impaction bilaterally; no foreign body and no otic discharge General nose exam: external nose normal Face and sinus: normal facial exam Resp Effort & Inspection: normal respiratory effort and able to speak in complete sentences Course Vital Signs Vital signs: Vital Signs Temperature 36.7 C 01/13/25 19:10 Pulse 84 01/13/25 19:10 Respiratory Rate 16 01/13/25 19:10 Blood Pressure 107/74 01/13/25 19:10 Pulse Oximetry 95 01/13/25 19:10 Temperature 36.7 C 01/13/25 19:10 Temperature Source Oral 01/13/25 19:10 Pulse 84 01/13/25 19:10 Respiratory Rate 16 01/13/25 19:10 Blood Pressure 107/74 01/13/25 19:10 Blood Pressure Position Sitting 01/13/25 19:10 Pulse Oximetry 95 01/13/25 19:10 Oxygen Delivery Method Room Air 01/13/25 19:10 Oxygen Flow Rate 0 01/13/25 19:10 Pain Level 0 01/13/25 19:10 Medical Decision Making Quality:SDOH Health Related Social Needs: Health related social needs details N/A PFSH All Active Problems (Updated 01/13/25 @ 20:14 by Nilsa Cordova) Impacted cerumen of both ears (Acute) Pes cavus of right foot (Acute) Achilles tendon contracture, bilateral (Acute) Achilles tendinitis of both lower extremities (Acute) Plantar fasciitis, bilateral (Acute) Moderate obstructive sleep apnea (Acute) Heavy menses (Acute) Breast lump (Acute) scattered, throughout breasts Heel pain, bilateral (Acute) Pain in scar (Acute) Medial epicondyle apophysitis of right elbow due to overuse (Acute) Depression with anxiety (Acute) BMI 50.0-59.9, adult (Acute) 07/07/2018 BMI= 48. 02/2019 BMI = 52. Medical History Pneumonia Yeast dermatitis Hypertension affecting in third trimester , supervision, high-risk Influenza B Lumbar pain (02/09/18) Onset during 2017 . No relief with NSAIDs or PT. Other social stressor Finances are tight. 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 BMI 34.0-34.9,adult Surgical History Status post primary low transverse section Family History Mother Heart disease CT. 08/31/[address] Myocardial infarction Asthma Father Diabetes Alcohol abuse Neoplasm pancreatic cancer Sister No problems noted. 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 Pets and animals: Yes (2 CATS, 2 DOGS, 2 FERRETS, 2 LIZARDS) Pets and animals: cat(s), dog(s), ferret(s) and other Sexually active: Yes Do you think of yourself as: straight/heterosexual Current gender identity: female How often do you talk on the phone with friends or family?: once per week How often do you get together with friends or relatives?: never How often do you attend mandaen or tenriism services?: decline to answer Do you belong to any clubs or organized social groups?: no Panel score (0-1 are the most socially isolated patients): 0 What type of physical activity do you participate in: none Special david needs: No Seatbelt use: always Helmet use: Yes Helmet use: always Drive intox or ride w/intox driver education instructor: No Fire extinguisher in home: No Firearms in home: No In current or past relationships, have you been: made to feel afraid Do you feel safe at home: Yes Victim of physical abuse: No Victim of emotional abuse: Yes Victim of sexual abuse: No Would you like helpful sources: No Female Reproductive History Menstrual control method: patch History History 4 Para Hx # Term Pregnancies 2 Multiple births Hx # Pregnancies Ectopic pregnancies AB induced Hx Number of Living Children 2 AB spontaneous
[2025-01-13] MEDS: Carbamide Peroxide 15 ML BTL AU (19:35)
== END 2025-01-13 20:37 | disposition home or self-care (01) ==
LOC: ER 20:50
PROVIDERS: Emergency Provider Nurse Practitioner Family; PCP Nurse Practitioner Family
DX: H61.23 Impacted cerumen, bilateral (principal); H93.11 Tinnitus, right ear; Z87.891 Personal history of nicotine dependence
CPT/HCPCS: 69209; 99283

== ENCOUNTER 2025-07-09 16:48 | Emergency (ER) | payer MEDICAID, SELFPAY ==
[2025-07-09 16:52] VITALS: BP 150/84; PULSE 117; RESP 20; TEMP 38.8; O2SAT 94
--- NOTE | 2025-07-09 17:15 | DI.RAD_ITS ---
Exam(s) XR CHEST 2V PA LATERAL EXAM: XR CHEST 2V PA LATERAL CLINICAL HISTORY: Cough, SOB TECHNIQUE: 2D digital imaging was performed of the chest. Two images were obtained. PA and lateral views were obtained. COMPARISON: CR XR CHEST 2V PA LATERAL from 10/14/2023 CR XR PORTABLE CHEST AP from 07/20/2024 FINDINGS: MEDIASTINUM: Normal. HEART: Normal. PULMONARY VASCULATURE: Normal. LUNGS: Clear. PLEURAL SPACE: No pleural effusion or pneumothorax. BONE:Within normal limits for the patient's age. OTHER FINDINGS:Normal. IMPRESSION: No acute pulmonary findings. DATA REPOSITORY: RADIATION DOSE DELIVERED:
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
[2025-07-09] MEDS: Albuterol/Ipratropium 3 ML UPD VIAL UPD (17:34)
[2025-07-09] MEDS: Ketorolac 15 MG/ML VIAL IVP (17:34)
[2025-07-09] MEDS: Acetaminophen 500 MG TAB 1000 MG PO (17:34)
[2025-07-09] MEDS: Lactated Ringers 1,000 ML 1000 ML IV (17:39)
[2025-07-09 17:52] LABS: Abs Immature Grans 0.03 10^3/uL (0.0-0.06); HCT 40.6 % (36.0-46.0); HGB 13.0 g/dL (11.2-15.7); Immature Grans % 0.3 %; MCH 26.7 pg (27.0-33.0); MCHC 32.0 % (32.0-36.0); MCV 84 fL (80-95); MPV 9.8 fL (8.0-11.0); Platelet Count 297 10^3/uL (130-400); RBC 4.86 10^6/uL (3.93-5.22); RDW 13.0 % (11.7-14.6); RDW-SD 39.2 fL; WBC 9.11 10^3/uL (4.4-10.8)
[2025-07-09 18:18] LABS: ALT 20 U/L (14-59); AST 20 U/L (15-37); Albumin 3.5 g/dL (3.4-5.0); Alkaline Phosphatase 86 U/L (46-116); Anion Gap 5.4 mmol/L (3-11); BUN 6 mg/dL (7-18); Bilirubin, Total 0.7 mg/dL (0.2-1.0); CO2 29.6 mmol/L (21.0-32.0); Calcium 8.9 mg/dL (8.5-10.1); Chloride 102 mmol/L (98-107); Estimated GFR 89.86 (mL/min/1.73m2); Glucose 122 mg/dL (74-106); Magnesium 1.8 mg/dL (1.8-2.4); Potassium 3.9 mmol/L (3.5-5.1); Sodium 137 mmol/L (136-145); Total Protein 7.4 g/dL (6.4-8.2)
[2025-07-09] MEDS: Albuterol HFA 8 GM 60 PUFF INH IH (19:09)
[2025-07-09 19:35] LABS: COVID-19 PCR Negative (Negative); RSV PCR Negative (Negative)
[2025-07-09 19:48] VITALS: BP 116/62; PULSE 82; RESP 18; TEMP 37.1; O2SAT 93
[2025-07-09 20:07] VITALS: BP 116/62; PULSE 80; RESP 18; TEMP 37.1; O2SAT 93
== END 2025-07-09 20:08 | disposition home or self-care (01) ==
PROVIDERS: Emergency Provider Emergency Medicine; PCP Nurse Practitioner Family
DX: J06.9 Acute upper respiratory infection, unspecified (principal); B97.89 Other viral agents as the cause of diseases classified elsewhere; Z87.891 Personal history of nicotine dependence
CPT/HCPCS: 36415; 80053; 87637; 94640; 96374; 99284; 71046; 83735; 85025; J1885; J7620